=== PATIENT | female | born 1945 | race Caucasian/White ===

== ENCOUNTER → 2016-11-24 | Outpatient (CLI) | payer MEDICARE ==
--- NOTE | 2016-11-24 16:07 | BD ---
EXAMINATION TYPE: MG DEXA axial skeleton. DATE OF EXAM: 11/24/2016 3:46 PM COMPARISON: NONE CLINICAL HISTORY:screening osteoporosis Height: 5'7 Weight: 145 FRAX RISK QUESTIONS: Alcohol (3 or more units per day): no Family History (Parent hip fracture): no Glucocorticoids (More than 3mos): no (Ex: prednisone, prednisolone, methylprednisolone, dexamethasone, and hydrocortisone). History of Fracture in Adulthood: no Secondary Osteoporosis: 1. Type 1 Diabetes: no 2. Hyperthyroidism: no 3. Menopause before 45: no 4. Malnutrition: no 5. 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 System. Bone mineral density as measured about the Lumbar spine is: ----- L1-L4(G/cm2): 1.246 T Score Values are as follows: ----- L2: -0.6 ----- L3: 0.8 ----- L4: 0.3 ----- L1-L4: 0.6 Bone mineral density about the R hip (g/cm2): 0.784 Bone mineral density about the L hip (g/cm2): 0.730 T Score values are as follows: -----R Neck: -1.8 -----L Neck: -2.2 -----R Intertrochanter: -1.9 -----L Intertrochanter: -1.8 IMPRESSION: Osteopenia (T Score between -2.5 and -1 as noted by T score values: luba hips There is slightly increased risk of fracture and the patient may be considered for treatment. Re-Screen 1-2 years. NOTE: T-SCORE=SD OF THE YOUNG ADULT MEAN.
--- NOTE | 2016-11-25 07:24 | MM ---
Reason for exam: screening (asymptomatic). History: Patient is postmenopausal. Took hormonal contraceptives for 1 year. Physical Findings: Nurse did not find any significant physical abnormalities on exam. MG 3D Screening Mammo W/Cad Bilateral CC and MLO view(s) were taken. No prior studies available for comparison. There are scattered fibroglandular densities. Finding: There are vascular calcifications in both breasts. There is no discrete abnormality. These results were verbally communicated with the patient and result sheet given to the patient on 11/24/16. ASSESSMENT: Benign, BI-RAD 2 RECOMMENDATION: Routine screening mammogram of both breasts in 1 year.
== END | disposition home or self-care (01) ==
LOC: RADMAMWWP 14:44
PROVIDERS: ATTEND Family Medicine
DX: Z12.31 Encounter for screening mammogram for malignant neoplasm of breast (principal); Z13.820 Encounter for screening for osteoporosis; M85.80 Other specified disorders of bone density and structure, unspecified site
CPT/HCPCS: 77080; 77063; G0202

== ENCOUNTER → 2016-12-08 | Outpatient (CLI) | payer MEDICARE ==
[2016-12-08 14:21] LABS: ALT 30 U/L (9-52); AST 20 U/L (14-36); Anion Gap 9 mmol/L; Blood Urea Nitrogen 9 mg/dL (7-17); Carbon Dioxide 28 mmol/L (22-30); Chloride 99 mmol/L (98-107); Non-African American GFR(MDRD) >60 (>60 ml/min/1.73 sqM); Potassium 3.9 mmol/L (3.5-5.1); Sodium 136 mmol/L (137-145)
[2016-12-08 15:28] LABS: Vitamin B12 521 pg/mL
== END | disposition home or self-care (01) ==
LOC: LABWHC1 13:26
PROVIDERS: ATTEND Psychiatry & Neurology Neurology
DX: R41.3 Other amnesia (principal); G30.0 Alzheimer's disease with early onset
CPT/HCPCS: 36415; 80051; 82565; 82607; 82746; 84450; 84460; 84520

== ENCOUNTER 2017-02-09 12:58 | Emergency (ER) | payer MEDICARE ==
[2017-02-09 13:19] VITALS: RESP 18
[2017-02-09] MEDS ORDERED: SODIUM CHLORIDE 0.9% 500 ML IV STA (13:34)
[2017-02-09 14:20] LABS: Basophils % (A) 0 %; CH 31.3; CHCM 34.9; Eosinophils # (A) 0.1 k/uL (0-0.7); Eosinophils % (A) 1 %; HCT 38.3 % (34.0-46.0); HDW 2.78; HGB 13.2 gm/dL (11.4-16.0); Luc # (Auto) 0.15; Luc % (Auto) 1; Lymphocytes # (A) 0.7 k/uL (1.0-4.8); Lymphocytes % (A) 6 %; MCH 30.9 pg (25.0-35.0); MCHC 34.4 g/dL (31.0-37.0); MCV 89.9 fL (80.0-100.0); Mean Platelet Volume 6.5; Monocytes # (A) 0.7 k/uL (0-1.0); Monocytes % (A) 6 %; Neutrophils # (A) 9.6 k/uL (1.3-7.7); Neutrophils % (A) 85 %; RBC 4.26 m/uL (3.80-5.40); RDW 13.8 % (11.5-15.5); WBC 11.3 k/uL (3.8-10.6); WBC (Perox) 11.51
--- NOTE | 2017-02-09 14:24 | ED ---
General Adult HPI - General Chief complaint: Recheck/Abnormal Lab/Rx Stated complaint: abn labs Time Seen by Provider: 02/09/17 13:23 Source: patient, RN notes reviewed, old records reviewed Mode of arrival: ambulatory Limitations: no limitations - History of Present Illness Initial comments: This is a 71-year-old female here for evaluation of abnormal outpatient lab tests. Patient does take Coumadin for history of A. fib. Patient states her recent INR is been around 5 and 6. This patient 3 different testings on outpatient basis. No change in medications or recent antibiotic use no change in diet. Mild diarrheal illness last week but that has resolved. Patient states she has no bleeding no feelings of lightheadedness dizziness or weakness. She has not taken any Coumadin since - Related Data Home Medications Medication Instructions Recorded Confirmed Acetaminophen Tab [Tylenol Tab] 1,000 mg PO BID PRN 02/09/17 02/09/17 Atorvastatin [Lipitor] 20 mg PO HS 02/09/17 02/09/17 Cyanocobalamin (Vitamin B-12) 1,000 mcg PO QAM 02/09/17 02/09/17 [Vitamin B-12] Donepezil [Aricept] 5 mg PO QAM 02/09/17 02/09/17 Multivitamins, Thera [Multivitamin 1 tab PO HS 02/09/17 02/09/17 (formulary)] Warfarin [Coumadin] 5 mg PO MOTUTHFRSA 02/09/17 02/09/17 Allergies Allergy/AdvReac Type Severity Reaction Status Date / Time No Known Allergies Allergy Verified 02/09/17 14:41 Review of Systems ROS Statement: Those systems with pertinent positive or pertinent negative responses have been documented in the HPI. ROS Other: All systems not noted in ROS Statement are negative. Past Medical History Past Medical History: Atrial Fibrillation, CVA/TIA, Dementia, Hyperlipidemia History of Any Multi-Drug Resistant Organisms: None Reported Past Surgical History: Cholecystectomy, Hysterectomy Additional Past Surgical History / Comment(s): varicose veins Past Psychological History: No Psychological Hx Reported Smoking Status: Never smoker Past Alcohol Use History: None Reported Past Drug Use History: None Reported General Exam Limitations: no limitations General appearance: alert, in no apparent distress Head exam: Present: atraumatic, normocephalic, normal inspection Eye exam: Present: normal appearance, PERRL, EOMI. Absent: scleral icterus, conjunctival injection, periorbital swelling ENT exam: Present: normal exam, mucous membranes moist Neck exam: Present: normal inspection. Absent: tenderness, meningismus, lymphadenopathy Respiratory exam: Present: normal lung sounds bilaterally. Absent: respiratory distress, wheezes, rales, rhonchi, stridor Cardiovascular Exam: Present: regular rate, normal rhythm, normal heart sounds. Absent: systolic murmur, diastolic murmur, rubs, gallop, clicks GI/Abdominal exam: Present: soft, normal bowel sounds. Absent: distended, tenderness, guarding, rebound, rigid Extremities exam: Present: normal inspection, full ROM, normal capillary refill. Absent: tenderness, pedal edema, joint swelling, calf tenderness Back exam: Present: normal inspection Neurological exam: Present: alert, oriented X3, CN II-XII intact Psychiatric exam: Present: normal affect, normal mood Skin exam: Present: warm, dry, intact, normal color. Absent: rash Course Vital Signs 02/09/17 13:15 Temperature 98.9 F Pulse Rate 93 Respiratory 18 Rate Blood Pressure 148/64 O2 Sat by Pulse 95 Oximetry - Reevaluation(s) Reevaluation #1: 02/09/17 14:24 Discussed the patient at length regarding anticoagulation, questions are answered Reevaluation #2: 02/09/17 14:53 Again patient remains with no obvious bleeding, hemoglobin stable vital signs normal Medical Decision Making - Medical Decision Making 71 female here for evaluation of INR, patient remains elevated 6.2. Patient will continue not to take Coumadin we will provide patient with vitamin K here in the emergency room and patient will have recheck INR in 48 hours - Lab Data Result diagrams: 02/09/17 14:00 02/09/17 14:00 Lab Results 02/09/17 02/09/17 02/09/17 Range/Units 14:00 14:00 14:00 WBC 11.3 H (3.8-10.6) k/uL RBC 4.26 (3.80-5.40) m/uL Hgb 13.2 (11.4-16.0) gm/dL Hct 38.3 (34.0-46.0) % MCV 89.9 (80.0-100.0) fL MCH 30.9 (25.0-35.0) pg MCHC 34.4 (31.0-37.0) g/dL RDW 13.8 (11.5-15.5) % Plt Count 316 (150-450) k/uL Neutrophils % 85 % Lymphocytes % 6 % Monocytes % 6 % Eosinophils % 1 % Basophils % 0 % Neutrophils # 9.6 H (1.3-7.7) k/uL Lymphocytes # 0.7 L (1.0-4.8) k/uL Monocytes # 0.7 (0-1.0) k/uL Eosinophils # 0.1 (0-0.7) k/uL Basophils # 0.0 (0-0.2) k/uL PT 65.2 H (9.0-12.0) sec INR 6.4 H* (<1.1) APTT 47.2 H (22.0-30.0) sec Sodium 134 L (137-145) mmol/L Potassium 3.5 (3.5-5.1) mmol/L Chloride 100 (98-107) mmol/L Carbon Dioxide 28 (22-30) mmol/L Anion Gap 6 mmol/L BUN 8 (7-17) mg/dL Creatinine 0.51 L (0.52-1.04) mg/dL Est GFR (MDRD) Af Amer >60 (>60 ml/min/1.73 sqM) Est GFR (MDRD) Non-Af >60 (>60 ml/min/1.73 sqM) Glucose 92 (74-99) mg/dL Calcium 8.5 (8.4-10.2) mg/dL Phosphorus 3.8 (2.5-4.5) mg/dL Magnesium 1.9 (1.6-2.3) mg/dL Disposition Clinical Impression: Coumadin toxicity Disposition: HOME SELF-CARE Condition: Good Instructions: Warfarin (By mouth) Referrals: Jose Armando Molina MD [Primary Care Provider] - 1-2 days
[2017-02-09 14:35] LABS: Anion Gap 6 mmol/L; Blood Urea Nitrogen 8 mg/dL (7-17); Calcium 8.5 mg/dL (8.4-10.2); Carbon Dioxide 28 mmol/L (22-30); Chloride 100 mmol/L (98-107); Glucose 92 mg/dL (74-99); Magnesium 1.9 mg/dL (1.6-2.3); Non-African American GFR(MDRD) >60 (>60 ml/min/1.73 sqM); Phosphorous 3.8 mg/dL (2.5-4.5); Potassium 3.5 mmol/L (3.5-5.1); Sodium 134 mmol/L (137-145)
[2017-02-09 14:47] LABS: Partial Thromboplastin Time 47.2 sec (22.0-30.0); Prothrombin Time 65.2 sec (9.0-12.0)
[2017-02-09 14:49] LABS: INR 6.4 (<1.1)
[2017-02-09] MEDS ORDERED: PHYTONADIONE ORAL 5 MG/5 ML ORAL.SYRG PO STA (14:51)
[2017-02-09 15:12] VITALS: BP 156/68; PULSE 88; TEMP 98.8
== END 2017-02-09 15:10 | disposition home or self-care (01) ==
LOC: EC 12:58
DX: R79.1 Abnormal coagulation profile (principal); T45.515A Adverse effect of anticoagulants, initial encounter; I48.91 Unspecified atrial fibrillation; F03.90 Unspecified dementia, unspecified severity, without behavioral disturbance, psychotic disturbance, mood disturbance, and anxiety; E78.5 Hyperlipidemia, unspecified; Z79.01 Long term (current) use of anticoagulants; Z79.899 Other long term (current) drug therapy
CPT/HCPCS: 36415; 80048; 83735; 84100; 84484; 85025; 85610; 85730; 99284

== ENCOUNTER 2017-02-13 07:45 | Emergency (ER) | payer MEDICARE ==
[2017-02-13] MEDS ORDERED: KETOROLAC 60 MG/2 ML VIAL IM STA (08:13)
[2017-02-13] MEDS ORDERED: HYDROmorphone 1 MG/ML 1 ML SYRINGE IM STA (08:13)
[2017-02-13] MEDS ORDERED: ONDANSETRON ODT 4 MG TAB PO STA (08:13)
--- NOTE | 2017-02-13 08:17 | ED ---
General Adult HPI - General Chief complaint: Shortness of Breath Stated complaint: Fall Time Seen by Provider: 02/13/17 07:55 Source: patient, RN notes reviewed Mode of arrival: wheelchair Limitations: no limitations - History of Present Illness Initial comments: This is a 71-year-old female who presents emergency department after having fallen a few days ago and hurting her left lateral rib cage. Patient comes in today because the pain is getting worse and her doctor told her he heard some crackles in the base of her lung. Patient denies any cough patient denies any fever or chills. Patient denies any palpitations or chest pain. Patient denies any lightheadedness dizziness or near syncopal episode. Patient states she was on a stool lost her balance and fell up against the toilet paper roll dispenser. Patient denies any other injury. Patient denies hitting her head patient denies any loss of conscious patient denies being dazed. Patient denies any neck pain or injury to her neck. Patient denies any numbness weakness - Related Data Home Medications Medication Instructions Recorded Confirmed Acetaminophen Tab [Tylenol Tab] 1,000 mg PO BID PRN 02/09/17 02/13/17 Atorvastatin [Lipitor] 20 mg PO HS 02/09/17 02/13/17 Cyanocobalamin (Vitamin B-12) 1,000 mcg PO QAM 02/09/17 02/13/17 [Vitamin B-12] Donepezil [Aricept] 5 mg PO QAM 02/09/17 02/13/17 Multivitamins, Thera [Multivitamin 1 tab PO DAILY 02/09/17 02/13/17 (formulary)] Warfarin [Coumadin] 2.5 mg PO HS 02/13/17 02/13/17 Previous Rx's Medication Instructions Recorded Hydrocodone/Acetaminophen [Ashford 1 each PO Q4HR PRN #20 tab 02/13/17 5-325] Ibuprofen [Motrin] 400 mg PO Q6HR PRN #20 tab 02/13/17 Allergies Allergy/AdvReac Type Severity Reaction Status Date / Time No Known Allergies Allergy Verified 02/13/17 08:15 Review of Systems ROS Statement: Those systems with pertinent positive or pertinent negative responses have been documented in the HPI. ROS Other: All systems not noted in ROS Statement are negative. Past Medical History Past Medical History: Atrial Fibrillation, CVA/TIA, Dementia, Hyperlipidemia History of Any Multi-Drug Resistant Organisms: None Reported Past Surgical History: Cholecystectomy, Hysterectomy Additional Past Surgical History / Comment(s): varicose veins Past Psychological History: No Psychological Hx Reported Smoking Status: Never smoker Past Alcohol Use History: None Reported Past Drug Use History: None Reported General Exam - General Exam Comments Initial Comments: GENERAL: Patient is well-developed and well-nourished. Patient is nontoxic and well- hydrated and is in mild distress. ENT: Neck is soft and supple. No significant lymphadenopathy is noted. Oropharynx is clear. Moist mucous membranes. Neck has full range of motion without eliciting any pain. EYES: The sclera were anicteric and conjunctiva were pink and moist. Extraocular movements were intact and pupils were equal round and reactive to light. Eyelids were unremarkable. PULMONARY: Unlabored respirations. Good breath sounds bilaterally. Patient has crackles in the left base.. CARDIOVASCULAR: There is a regular rate and rhythm without any murmurs gallops or rubs. Patient has some contusion over the left lateral rib cage. That area is very tender to palpation. ABDOMEN: Soft and nontender with normal bowel sounds. No palpable organomegaly was noted. There is no palpable pulsatile mass. SKIN: Skin is clear with no lesions or rashes and otherwise unremarkable. NEUROLOGIC: Patient is alert and oriented x3. Cranial nerves II through XII are grossly intact. Motor and sensory are also intact. Normal speech, volume and content. Symmetrical smile. MUSCULOSKELETAL: Normal extremities with adequate strength and full range of motion. No lower extremity swelling or edema. No calf tenderness. LYMPHATICS: No significant lymphadenopathy is noted PSYCHIATRIC: Normal psychiatric evaluation. Normal interpersonal interactions appears functionally intact in deals appropriately with others. No signs of depression. No signs of anxiety. Limitations: no limitations Course Vital Signs 02/13/17 07:52 Temperature 98.1 F Pulse Rate 78 Respiratory 22 Rate Blood Pressure 185/86 O2 Sat by Pulse 96 Oximetry Medical Decision Making - Medical Decision Making Chest x-ray shows 2 rib fractures on the left lateral rib cage. I went back into reevaluate the patient she was feeling considerably better. Disposition Clinical Impression: Rib fractures Disposition: HOME SELF-CARE Instructions: Rib Fracture (ED) Prescriptions: Hydrocodone/Acetaminophen [Ashford 5-325] 1 each PO Q4HR PRN #20 tab PRN Reason: Pain Ibuprofen [Motrin] 400 mg PO Q6HR PRN #20 tab PRN Reason: For pain Referrals: Jose Armando Molina MD [Primary Care Provider] - 1-2 days Time of Disposition: 09:22
--- NOTE | 2017-02-13 08:38 | XR ---
EXAMINATION TYPE: XR chest 2V DATE OF EXAM: 02/13/2017 HISTORY: Difficulty breathing . REFERENCE: NONE. FINDINGS: The lungs are overinflated. There is granulomatous change in the right lung. There is pleur al parenchymal change at the left lung base. There are calcified hilar lymph nodes. Heart size upper limits of normal. I could not exclude a small left effusion. No definite rib lesion is seen. IMPRESSION: 1. COPD. 2. BORDERLINE CARDIOMEGALY. 3. EVIDENCE OF OLD GRANULOMATOUS DISEASE. 4. NO PARENCHYMAL CHANGES, LEFT LUNG BASE.
[2017-02-13 09:51] VITALS: BP 131/65; PULSE 77; RESP 15; TEMP 97.7
== END 2017-02-13 10:17 | disposition home or self-care (01) ==
LOC: EC 07:45
DX: S22.42XG Multiple fractures of ribs, left side, subsequent encounter for fracture with delayed healing (principal); I48.91 Unspecified atrial fibrillation; F03.90 Unspecified dementia, unspecified severity, without behavioral disturbance, psychotic disturbance, mood disturbance, and anxiety; E78.5 Hyperlipidemia, unspecified; Z86.73 Personal history of transient ischemic attack (TIA), and cerebral infarction without residual deficits; Z79.01 Long term (current) use of anticoagulants; Z79.899 Other long term (current) drug therapy; W18.11XD Fall from or off toilet without subsequent striking against object, subsequent encounter
CPT/HCPCS: 96372 ×2; 71020; 99285; J1885; J1170

== ENCOUNTER 2017-04-08 08:32 | Day surgery (SDC) | payer MEDICARE ==
[2017-04-02 09:18] VITALS: BMI 22.8
[~2017-04-08 08:32] MED LIST: LACTATED RINGERS 1,000 ML IV SCH; LIDOCAINE 1% 20 ML VIAL (10MG/ML) FOR IV START INTRADERMA PRN; MOXIFLOXACIN HCL 0.5% DROPS 3 ML BTL OP ONE; TETRACAINE 0.5% OPHTH (PF) DROPS 4 ML BTL OP ONE; TIMOLOL 0.5% OPHTH SOLN (PF) 0.2 ML DROPERETTE OP ONE
[2017-04-08] MEDS: PHENYLEPHRINE 2.5% OPHTH DRP 2ML OP NR ×3 (09:41→09:55)
[2017-04-08] MEDS: CYCLOPENTOLATE 1% OPHTH SOLN 2 ML BTL OP ONE ×3 (09:44→09:59)
[2017-04-08 09:54] VITALS: RESP 16; TEMP 97.3
[2017-04-08] MEDS ORDERED: HYALURONATE SODIUM INTRAOCULAR 1 EACH SYRINGE (12MG/ML) INTRAOCULA ONE (10:27)
[2017-04-08] MEDS ORDERED: BALANCED SALT IRRIG SOLN COMB2 15 ML IRRIG.SOLN INTRAOCULA ONE (10:27)
[2017-04-08] MEDS ORDERED: LIDOCAINE 1% (PF) 10MG/ML VIAL MISCELLANE ONE (10:28)
[2017-04-08] MEDS ORDERED: fentaNYL (PF) 50 MCG/ML 2 ML AMP ONE (10:29)
[2017-04-08] MEDS ORDERED: MIDAZOLAM 2 MG/2 ML VIAL ONE (10:29)
[2017-04-08] MEDS ORDERED: EPINEPHrine (PF) 0.3 ML in BALANCED SALT IRRIG SOLN COMB2 500 ML IRRIGATION ONE (10:40)
--- NOTE | 2017-04-08 10:55 | P.OP ---
Date of Procedure: 04/08/17 Preoperative Diagnosis: NS & PSC Postoperative Diagnosis: same Procedure(s) Performed: PIOL, OD Implants: PCB0 +22.50 Anesthesia: MAC Surgeon: Juan Calderon Pathology: none sent Condition: stable Disposition: same day Indications for Procedure: blurry vision Operative Findings: no complications Description of Procedure:
[2017-04-08 11:19] VITALS: BP 148/77; PULSE 71
--- NOTE | 2017-04-09 10:56 | OP ---
PREOPERATIVE DIAGNOSIS: Nuclear sclerosis. Posterior subcapsular cataract. POSTOPERATIVE DIAGNOSIS: Nuclear sclerosis. Posterior subcapsular cataract. OPERATION: Clear cornea phacoemulsification of cataract and intraocular lens implant of the right eye. ESTIMATED BLOOD LOSS: Zero. SPECIMEN TAKEN: None. NARRATIVE: After obtaining the appropriate consent, the patient was brought to the Operating Room where the patient was placed under cardiac monitoring and prepped and draped in the usual sterile manner. At the 11 oclock position, a 15 degree super sharp blade was used to create a paracentesis followed by instillation of 1% Xylocaine MPF 50:50 mix with BSS into the anterior chamber. This was followed by Amvisc to stabilize the anterior chamber. At the 9 o clock position, a self sealing corneal flap incision was created using 2.8 mm caio keratome. A cystatome was used to initiate a continuous tear capsulorrhexis which was completed with the Utrata forceps. A Binkhorst cannula was used to hydrodissect the lens nucleus followed by hydrodelineation. Phacoemulsification of the lens was performed utilizing phacochop in 16.60 seconds at 8% power. The remaining cortical material was removed using the irrigation aspiration mode followed by additional 1% Xylocaine MPF into the anterior chamber followed by viscoelastic to stabilize the capsular bag. An SHARIF PZB 00 22.5 diopter posterior chamber lens was placed into the capsular bag without difficulty. The remaining viscoelastic material was removed from the anterior chamber with the irrigation/aspiration. Balanced salt solution was used to normalize the intraocular pressure. The incision was checked for watertight integrity. The patient then received two drops of 0.5% Timolol followed by two drops of Vigamox, was lightly patched and shielded in the usual manner. There were no complications from the procedure. The patient tolerated the procedure well and was returned to the recovery room in good condition. MARILU
== END 2017-04-08 11:39 | disposition home or self-care (01) ==
LOC: OR 08:32
PROVIDERS: ATTEND Ophthalmology
DX: H25.11 Age-related nuclear cataract, right eye (principal); H25.041 Posterior subcapsular polar age-related cataract, right eye; H52.03 Hypermetropia, bilateral; H52.223 Regular astigmatism, bilateral; H52.4 Presbyopia; H04.129 Dry eye syndrome of unspecified lacrimal gland; I51.9 Heart disease, unspecified; I48.91 Unspecified atrial fibrillation; F03.90 Unspecified dementia, unspecified severity, without behavioral disturbance, psychotic disturbance, mood disturbance, and anxiety; F32.9 Major depressive disorder, single episode, unspecified; I10 Essential (primary) hypertension; Z86.73 Personal history of transient ischemic attack (TIA), and cerebral infarction without residual deficits; Z79.01 Long term (current) use of anticoagulants; Z79.899 Other long term (current) drug therapy
CPT/HCPCS: 66984; C1780; J2250; J0171; J3010; J2001

== ENCOUNTER → 2017-12-01 | Outpatient (CLI) | payer MEDICARE ==
[2017-12-01 11:03] LABS: Basophils # (A) 0.1 k/uL (0-0.2); Basophils % (A) 1 %; Eosinophils # (A) 0.1 k/uL (0-0.7); Eosinophils % (A) 2 %; HCT 43.4 % (34.0-46.0); HGB 14.4 gm/dL (11.4-16.0); Lymphocytes # (A) 1.2 k/uL (1.0-4.8); Lymphocytes % (A) 18 %; MCH 29.4 pg (25.0-35.0); MCHC 33.2 g/dL (31.0-37.0); MCV 88.5 fL (80.0-100.0); Mean Platelet Volume 6.9; Monocytes # (A) 0.5 k/uL (0-1.0); Monocytes % (A) 8 %; Neutrophils # (A) 4.7 k/uL (1.3-7.7); Neutrophils % (A) 70 %; Platelet Count 249 k/uL (150-450); RBC 4.91 m/uL (3.80-5.40); RDW 13.7 % (11.5-15.5); WBC 6.7 k/uL (3.8-10.6)
[2017-12-01 11:13] LABS: Potassium 4.1 mmol/L (3.5-5.1)
== END | disposition home or self-care (01) ==
LOC: LABWHC1 10:39
PROVIDERS: ATTEND Psychiatry & Neurology Neurology
DX: R41.3 Other amnesia (principal)
CPT/HCPCS: 36415; 80051; 85025

== ENCOUNTER → 2017-12-10 | Outpatient (CLI) | payer MEDICARE ==
--- NOTE | 2017-12-11 08:43 | MM ---
Reason for exam: screening (asymptomatic). Last mammogram was performed 1 year and 1 month ago. History: Patient is postmenopausal. Took hormonal contraceptives for 1 year. Physical Findings: A clinical breast exam by your physician is recommended on an annual basis and results should be correlated with mammographic findings. MG 3D Screening Mammo W/Cad Bilateral CC and MLO view(s) were taken. Prior study comparison: November 24, 2016, bilateral MG 3d screening mammo w/cad. There are scattered fibroglandular densities. Finding #1: There is new spiculated 10 mm architectural distortion located 8 cm from the nipple in the posterior middle position of the right breast on CC 30/ and MLO 39/. Finding #2: There are typically benign vascular calcifications in both breasts. There is a chronic nodularity in the left breast. Asymmetric breast tissue in the left breast subareolar position, stable. ASSESSMENT: Incomplete: need additional imaging evaluation, BI-RAD 0 RECOMMENDATION: Ultrasound of the right breast. [facility] will attempt to contact patient to return for ultrasound.
== END | disposition home or self-care (01) ==
LOC: RADMAMWWP 09:51
PROVIDERS: ATTEND Family Medicine
DX: Z12.31 Encounter for screening mammogram for malignant neoplasm of breast (principal)
CPT/HCPCS: 77063; 77067

== ENCOUNTER → 2017-12-21 | Outpatient (CLI) | payer MEDICARE ==
--- NOTE | 2017-12-21 11:59 | USB ---
Reason for exam: additional evaluation requested from abnormal screening. History: Patient is postmenopausal. Took hormonal contraceptives for 1 year. Physical Findings: Nurse Summary: all soft, movable (nurse ts). US Breast Workup RT Right breast ultrasound includes all four quadrants, the retroareolar region and axilla. Finding demonstrates no cystic or solid lesion seen. These results were verbally communicated with the patient and result sheet given to the patient on 12/21/17. ASSESSMENT: Incomplete: need additional imaging evaluation, BI-RAD 0 RECOMMENDATION: Special view mammogram of the right breast.
--- NOTE | 2017-12-21 12:00 | MM ---
Reason for exam: additional evaluation requested from abnormal screening. Last mammogram was performed less than 1 month ago. History: Patient is postmenopausal. Took hormonal contraceptives for 1 year. MG 3D Work Up W/Cad RT Spot compression CC, spot compression MLO, and ML view(s) were taken of the right breast. Prior study comparison: December 10, 2017, bilateral MG 3d screening mammo w/cad. November 24, 2016, bilateral MG 3d screening mammo w/cad. Spiculated density 1 o'clock position right breast persists with negative ultrasound. These results were verbally communicated with the patient and result sheet given to the patient on 12/21/17. ASSESSMENT: Suspicious, BI-RAD 4 RECOMMENDATION: Stereotactic core biopsy of the right breast. Called Dr. Molina with mammographic findings and has scheduled an appointment for the patient for 12/21/17 at 1:[address] Suarez. PRELIMINARY REPORT CALLED AND FAXED TO DR. SUAREZ ON 12/21/17.
== END | disposition home or self-care (01) ==
LOC: RADUSWWP 10:19
PROVIDERS: ATTEND Family Medicine
DX: R92.8 Other abnormal and inconclusive findings on diagnostic imaging of breast (principal)
CPT/HCPCS: 77065; 76641; G0279

== ENCOUNTER → 2017-12-30 | Day surgery (SDC) | payer MEDICARE ==
[2017-12-30 13:59] VITALS: BP 162/79; PULSE 90; RESP 14; TEMP 98.9; BMI 25.0
[2017-12-30 14:18] LABS: INR 1.3 (<1.2); Prothrombin Time 12.2 sec (9.0-12.0)
== END ==
LOC: RADMAMWWP 13:12
PROVIDERS: ATTEND Student in an Organized Health Care Education/Training Program
DX: R92.8 Other abnormal and inconclusive findings on diagnostic imaging of breast (principal); Z53.8 Procedure and treatment not carried out for other reasons
CPT/HCPCS: 85610; 85730

== ENCOUNTER → 2017-12-31 | Day surgery (SDC) | payer MEDICARE ==
[2017-12-31 13:37] LABS: INR 1.1 (<1.2); Partial Thromboplastin Time 22.6 sec (22.0-30.0); Prothrombin Time 11.1 sec (9.0-12.0)
[2017-12-31 13:42] VITALS: RESP 16; BMI 25.0
[2017-12-31 14:45] VITALS: BP 166/80; PULSE 84; TEMP 98.9
--- NOTE | 2017-12-31 15:35 | MM ---
Stereotactic Mammotome core biopsy breast. HISTORY: Right breast density The density in question within the right breast were targeted by the undersigned. Procedure was performed by the undersigned. Informed consent was obtained and all of the patients questions were answered. The standard sterile technique was utilized and appropriate local anesthesia was obtained with 1% lidocaine and bicarbonate. 8 cc of lidocaine with epinephrine was also utilized. Mammotome probe was advanced and multiple core samples were obtained and sent to pathology for interpretation. Microclip marker was deployed at the site of biopsy. Post procedural mammogram demonstrates appropriate deployment of radiopaque clip marker. The patient tolerated the procedure well and left the department in stable condition. Pathology results are pending. IMPRESSION: Successful stereotactic core biopsy right breast with pathology results pending. Pathology Results: Benign BREAST, RIGHT, CORE BIOPSY: FAT NECROSIS WITH FIBROSIS, INFLAMMATION AND HISTIOCYTES. NEGATIVE FOR MALIGNANCY. Recommendation Follow up mammogram of the right breast in 3 months. (However this clip appears slightly cranial, 2.5cm, to the distortion and may have migrated. Therefore 3 month short term follow up is recommended). MARILU
== END | disposition home or self-care (01) ==
LOC: RADMAMWWP 13:06
PROVIDERS: ATTEND Student in an Organized Health Care Education/Training Program
DX: R92.8 Other abnormal and inconclusive findings on diagnostic imaging of breast (principal); N64.1 Fat necrosis of breast; N60.31 Fibrosclerosis of right breast; N61.0 Mastitis without abscess; Z91.041 Radiographic dye allergy status
CPT/HCPCS: 88305; 85610; 85730; 19081; 36415; A4648; J2001

== ENCOUNTER → 2018-07-07 | Outpatient (CLI) | payer MEDICARE ==
--- NOTE | 2018-07-07 10:37 | MM ---
Reason for exam: follow-up at short interval from prior study. Last mammogram was performed 6 months ago. History: Patient is postmenopausal. Benign MG stereo VAD BX RT of the right breast, December 31, 2017. Took hormonal contraceptives for 1 year. Physical Findings: Nurse did not find any significant physical abnormalities on exam. MG 3D Diag Mammo W/Cad RT CC and MLO view(s) were taken of the right breast. Prior study comparison: December 21, 2017, right breast MG 3d work up w/cad RT. December 10, 2017, bilateral MG 3d screening mammo w/cad. There are scattered fibroglandular densities. Asymmetric breast tissue likely biopsy change posterior right with benign calcification and density. This finding is changed when compared with previous exams. These results were verbally communicated with the patient and result sheet given to the patient on 07/07/18. ASSESSMENT: Probably benign, BI-RAD 3 RECOMMENDATION: Follow-up diagnostic mammogram of both breasts in 6 months.
== END | disposition home or self-care (01) ==
LOC: RADMAMWWP 09:29 → EEVIPCON 09:40
PROVIDERS: ATTEND Student in an Organized Health Care Education/Training Program
DX: R92.8 Other abnormal and inconclusive findings on diagnostic imaging of breast (principal)
CPT/HCPCS: 77065; G0279; 77061

== ENCOUNTER → 2019-04-06 | Outpatient (CLI) | payer MEDICARE ==
--- NOTE | 2019-04-06 14:17 | BD ---
EXAMINATION TYPE: Axial Bone Density DATE OF EXAM: 04/06/2019 COMPARISON: 11/24/2016 CLINICAL HISTORY: Postmenopausal female. Height: 63 IN Weight: 168 LBS RISK FACTORS HISTORY OF: Active: YES Diet low in dairy products/other sources of calcium: YES Postmenopausal woman: AGE 43 Lost more than 2 inches in height since high school: YES 09/15" MEDICATIONS: Additional Medications: VIT D, WARFARIN, CHOLESTEROL MEDS, WATER PILL, BLOOD PRESSURE MEDS EXAM MEASUREMENTS: Bone mineral densitometry was performed using the [employer]. Bone mineral density as measured about the Lumbar spine is: ----- L1-L4(G/cm2): 1.234 T Score Values are as follows: ----- L2: 0.2 ----- L3: 1.5 ----- L4: -0.4 ----- L1-L4: 0.5 Bone mineral density has: Increased 1.4% since study of: 11/24/2016 Bone mineral density about the R hip (g/cm2): 0.747 Bone mineral density about the L hip (g/cm2): 0.686 T Score values are as follows: -----R Neck: -2.1 -----L Neck: -2.5 -----R Total: -1.6 -----L Total: -2.3 Bone mineral density has: Decreased -2.8% since study of: 11/24/2016 IMPRESSION: Osteopenia (T Score between -2.5 and -1) remains present in both hips. There remains slightly increased risk of fracture and the patient may be considered for treatment. Re-Screen 2-5 years. NOTE: T-SCORE=SD OF THE YOUNG ADULT MEAN.
== END | disposition home or self-care (01) ==
LOC: RADBDWWP 12:41
PROVIDERS: ATTEND Family Medicine
DX: M85.88 Other specified disorders of bone density and structure, other site (principal); Z78.0 Asymptomatic menopausal state
CPT/HCPCS: 77080

== ENCOUNTER 2019-09-07 09:40 | Emergency (ER) | payer MEDICARE ==
[2019-09-07 09:50] VITALS: RESP 18; TEMP 98.2
--- NOTE | 2019-09-07 10:42 | XR ---
EXAMINATION TYPE: XR chest 1V portable DATE OF EXAM: 09/07/2019 COMPARISON: February 13, 2017 HISTORY: Shortness of breath TECHNIQUE: Frontal and lateral views of the chest are obtained. FINDINGS: Scattered senescent parenchymal changes noted. Hyperinflation compatible with COPD. No evidence for infiltrate. No evidence for atelectasis. Heart size is stable. Mediastinal structures are stable and grossly unremarkable. Persistence of bilateral hilar prominence. Degenerative changes dorsal spine. IMPRESSION: 1. No evidence for acute pulmonary disease.
[2019-09-07] MEDS ORDERED: KETOROLAC 30 MG/ML 1 ML VIAL IVP STA (10:58)
--- NOTE | 2019-09-07 11:02 | ED ---
General Adult HPI - General Chief complaint: Syncope Stated complaint: Syncope, headache Time Seen by Provider: 09/07/19 09:56 Source: patient Mode of arrival: wheelchair Limitations: no limitations - History of Present Illness Initial comments: Dictation was produced using [employer] dictation software. please excuse any grammatical, word or spelling errors. Chief Complaint: 74-year-old female past medical history of A. fib, dementia and dyslipidemia presents after syncope yesterday and headache since this morning. History of Present Illness: It is a 74-year-old female she was at [employer] doing [employer]ism when she felt warm. She didn't syncopized. EMS was called and patient is evaluated by EMS however patient refused to come to the emergency department. Patient was at home where she lives by herself. Patient states that the middle night she began having a slight headache. Patient is a history of headaches. She states that it's located to the left of the region throbbing in nature. Patient has a history of migraines. Patient has a sciatic pain worsening of her life. Denies thunderclap characteristic. No neuro deficits. No vision changes. Patient has a history of syncope. Most recently was last year she had 2 episodes. Patient had a workup for her syncope with no apparent findings. The ROS documented in this emergency department record has been reviewed and confirmed by me. Those systems with pertinent positive or negative responses have been documented in the HPI. All other systems are other negative and/or noncontributory. PHYSICAL EXAM: General Impression: Alert and oriented x3, not in acute distress HEENT: Normocephalic atraumatic, extra-ocular movements intact, pupils equal and reactive to light bilaterally, mucous membranes moist. Cardiovascular: Heart regular rate and rhythm, S1&S2 audible, no murmurs, rubs or gallops Chest: Lungs clear to auscultation bilaterally, no rhonchi, no wheeze, no rales Abdomen: Bowel sounds present, abdomen soft, non-tender, non-distended, no organomegaly Musculoskeletal: Pulses present and equal in all extremities, no peripheral edema Motor: no focal deficits noted Neurological: CN II-XII grossly intact, no focal motor or sensory deficits noted Skin: Intact with no visualized rashes Psych: Normal affect and mood ED course: 74-year-old female presents with headache and syncope yesterday. As upon arrival are within acceptable limits. Laboratory evaluation obtained. CBC, coag panel, metabolic panel is unremarkable. Computed tomography scan of the head and chest x-ray is unremarkable. Patient observed in emergency department stable medical con dition. Disposition options were discussed with patient and family member. Observation admission was offered however patient declined. patient is stable for discharge for outpatient workup of symptoms. Return parameters discussed. Patient has no high-risk features to suggest life-threatening cardiopulmonary disease to cause syncope. EKG interpretation: Ventricular rate 81, normal sinus rhythm,. right bundle branch block 188, QRS 1:30, QTC 473. No TX prolongation, no QTC prolongation, no ST or T-wave changes noted. No old EKG for comparison Overall, this EKG is unremarkable - Related Data Home Medications Medication Instructions Recorded Confirmed Acetaminophen Tab [Tylenol Tab] 1,000 mg PO BID PRN 02/09/17 12/31/17 Atorvastatin [Lipitor] 20 mg PO HS 02/09/17 12/31/17 Cyanocobalamin (Vitamin B-12) 1,000 mcg PO QAM 02/09/17 12/31/17 [Vitamin B-12] Donepezil [Aricept] 10 mg PO QAM 02/09/17 12/31/17 Warfarin [Coumadin] 4 mg PO HS 02/13/17 12/31/17 Melatonin (Unk Dose) 1 tab PO HS 04/02/17 12/31/17 Dextromethorphan Polistirex 30 mg PO HS 12/23/17 12/31/17 [Delsym] Guaifen/Phenyleph/Acetaminophn 180 ml PO QID PRN 12/23/17 12/31/17 [Mucinex Sinus-Max Severe Liq] Allergies Allergy/AdvReac Type Severity Reaction Status Date / Time Iodinated Contrast Media Allergy Unknown Verified 12/31/17 13:31 [Iodinated Contrast- Oral and IV Dye] Review of Systems ROS Statement: Those systems with pertinent positive or pertinent negative responses have been documented in the HPI. ROS Other: All systems not noted in ROS Statement are negative. Past Medical History Past Medical History: Atrial Fibrillation, CVA/TIA, Dementia, Hyperlipidemia Additional Past Medical History / Comment(s): bladder not completely emptying,rt cataract History of Any Multi-Drug Resistant Organisms: None Reported Past Surgical History: Cholecystectomy, Hysterectomy Additional Past Surgical History / Comment(s): bilateral cataract,varicose veins in bilateral legs Past Anesthesia/Blood Transfusion Reactions: No Reported Reaction Additional Past Anesthesia/Blood Transfusion Reaction / Comment(s): NO transfusion to date Past Psychological History: Depression Smoking Status: Never smoker Past Alcohol Use History: None Reported, Heavy Past Drug Use History: None Reported - Past Family History Mother Family Medical History: No Reported History Father Family Medical History: No Reported History General Exam Limitations: no limitations Course Vital Signs 09/07/19 09/07/19 09/07/19 09:46 10:30 11:00 Temperature 98.2 F Pulse Rate 82 77 76 Respiratory 18 20 18 Rate Blood Pressure 178/89 175/79 179/93 O2 Sat by Pulse 96 97 96 Oximetry Medical Decision Making - Lab Data Result diagrams: 09/07/19 10:40 09/07/19 10:40 Lab Results 09/07/19 09/07/19 09/07/19 Range/Units 10:40 10:40 10:40 WBC 8.9 (3.8-10.6) k/uL RBC 5.06 (3.80-5.40) m/uL Hgb 15.4 (11.4-16.0) gm/dL Hct 43.5 (34.0-46.0) % MCV 85.9 (80.0-100.0) fL MCH 30.4 (25.0-35.0) pg MCHC 35.3 (31.0-37.0) g/dL RDW 13.3 (11.5-15.5) % Plt Count 211 (150-450) k/uL Neutrophils % 84 % Lymphocytes % 9 % Monocytes % 5 % Eosinophils % 1 % Basophils % 0 % Neutrophils # 7.5 (1.3-7.7) k/uL Lymphocytes # 0.8 L (1.0-4.8) k/uL Monocytes # 0.5 (0-1.0) k/uL Eosinophils # 0.0 (0-0.7) k/uL Basophils # 0.0 (0-0.2) k/uL PT 19.2 H (9.0-12.0) sec INR 1.9 H (<1.2) APTT 32.0 H (22.0-30.0) sec Sodium 137 (137-145) mmol/L Potassium 3.9 (3.5-5.1) mmol/L Chloride 103 (98-107) mmol/L Carbon Dioxide 23 (22-30) mmol/L Anion Gap 11 mmol/L BUN 9 (7-17) mg/dL Creatinine 0.61 (0.52-1.04) mg/dL Est GFR (CKD-EPI)AfAm >90 (>60 ml/min/1.73 sqM) Est GFR (CKD-EPI)NonAf 88 (>60 ml/min/1.73 sqM) Glucose 124 H (74-99) mg/dL Calcium 9.4 (8.4-10.2) mg/dL Disposition Clinical Impression: Syncope, Headache Disposition: HOME SELF-CARE Condition: Good Instructions (If sedation given, give patient instructions): Syncope (ED) Is patient prescribed a controlled substance at d/c from ED?: No Referrals: Jose Armando Molina MD [Primary Care Provider] - 1-2 days Time of Disposition: 11:35
[2019-09-07 11:05] LABS: Basophils % (A) 0 %; Eosinophils % (A) 1 %; HCT 43.5 % (34.0-46.0); HGB 15.4 gm/dL (11.4-16.0); Lymphocytes # (A) 0.8 k/uL (1.0-4.8); Lymphocytes % (A) 9 %; MCH 30.4 pg (25.0-35.0); MCHC 35.3 g/dL (31.0-37.0); MCV 85.9 fL (80.0-100.0); Mean Platelet Volume 7.4; Monocytes # (A) 0.5 k/uL (0-1.0); Monocytes % (A) 5 %; Neutrophils # (A) 7.5 k/uL (1.3-7.7); Neutrophils % (A) 84 %; Platelet Count 211 k/uL (150-450); RBC 5.06 m/uL (3.80-5.40); RDW 13.3 % (11.5-15.5); WBC 8.9 k/uL (3.8-10.6)
[2019-09-07 11:06] LABS: African American GFR (CKD) >90 (>60 ml/min/1.73 sqM); Anion Gap 11 mmol/L; Blood Urea Nitrogen 9 mg/dL (7-17); Calcium 9.4 mg/dL (8.4-10.2); Carbon Dioxide 23 mmol/L (22-30); Chloride 103 mmol/L (98-107); Glucose 124 mg/dL (74-99); Non-African American GFR(CKD) 88 (>60 ml/min/1.73 sqM); Potassium 3.9 mmol/L (3.5-5.1); Sodium 137 mmol/L (137-145)
--- NOTE | 2019-09-07 11:06 | CT ---
EXAMINATION TYPE: CT brain jose aguilera DATE OF EXAM: 09/07/2019 COMPARISON: None HISTORY: Syncopal episode last night CT DLP: [address] of the brain was performed. The ventricles, basal cisterns and sulci overlying the cerebral convexities demonstrate moderate enla rgement. There is no evidence for intracranial hemorrhage or sulcal effacement. There is decreased attenuatio n about the periventricular white matter and deep white matter of both cerebral hemispheres, compatib le with chronic small vessel ischemia. No mass effects are seen. If symptoms persist consider MRI. Osseous calvarium is intact. IMPRESSION: 1. Age related atrophic and chronic small vessel ischemic change without acute intracranial process seen at this time. CT Cervical Spine: Unenhanced CT of the cervical spine was performed with bone and soft tissue window settings submitted . Coronal and sagittal reconstruction is obtained. There is normal alignment and prevertebral soft tissues. No evidence for acute cervical fracture . Scattered degenerative disc disease and spondylosis. Biapical scarring. IMPRESSION: 1. No evidence for acute fracture or subluxation of the cervical spine.
[2019-09-07 11:26] LABS: INR 1.9 (<1.2); Prothrombin Time 19.2 sec (9.0-12.0)
[2019-09-07] MEDS ORDERED: ACETAMINOPHEN TAB 500 MG TAB PO STA (12:08)
[2019-09-07 12:13] VITALS: BP 194/88; PULSE 73
== END 2019-09-07 12:25 | disposition home or self-care (01) ==
LOC: EC 09:40
DX: R55 Syncope and collapse (principal); R51 Headache; I45.10 Unspecified right bundle-branch block; M54.30 Sciatica, unspecified side; I48.91 Unspecified atrial fibrillation; F03.90 Unspecified dementia, unspecified severity, without behavioral disturbance, psychotic disturbance, mood disturbance, and anxiety; E78.5 Hyperlipidemia, unspecified; Z91.041 Radiographic dye allergy status; Z79.01 Long term (current) use of anticoagulants; Z79.899 Other long term (current) drug therapy; Z86.73 Personal history of transient ischemic attack (TIA), and cerebral infarction without residual deficits; Z86.69 Personal history of other diseases of the nervous system and sense organs; Z53.20 Procedure and treatment not carried out because of patient's decision for unspecified reasons
CPT/HCPCS: 36415; 93005; 80048; 85025; 85610; 85730; 71045; 72125; 70450; 99285; 96374; J1885

== ENCOUNTER → 2021-04-10 | Outpatient (CLI) | payer MEDICARE ==
--- NOTE | 2021-04-11 09:56 | BD ---
EXAMINATION TYPE: Axial Bone Density DATE OF EXAM: 04/10/2021 COMPARISON: 04/06/2019 CLINICAL HISTORY: 75-year-old female osteopenia, M85.80 Height: 62.5 IN Weight: 168 LBS FRAX RISK QUESTIONS: Secondary Osteoporosis: 3. Menopause before 45: TOTAL HYST AGE 29 RISK FACTORS HISTORY OF: Active: LIMITED Postmenopausal woman: TOTAL HYST AGE 29 Lost more than 2 inches in height since high school: YES 4 " MEDICATIONS: Osteoporosis Medications: YES Which medication: ALENDRONATE SODIUM How Lon YEARS Additional Medications: CALCIUM, VIT D, ALENDRONATE SODIUM, DONEPEZIL HCL, B12, VIT C, ZINC, ATORVAST ATIN, XARELTO, MELATONIN, EXAM MEASUREMENTS: Bone mineral densitometry was performed using the [employer]. Bone mineral density as measured about the Lumbar spine is: ----- L1-L4(G/cm2): 1.347 T Score Values are as follows: ----- L2: 1.6 ----- L3: 1.4 ----- L4: 0.6 ----- L1-L4: 1.4 Bone mineral density has: Increased 7.7% since study of: 04/06/2019 Bone mineral density about the R hip (g/cm2): 0.796 Bone mineral density about the L hip (g/cm2): 0.694 T Score values are as follows: -----R Neck: -1.7 -----L Neck: -2.5 -----R Total: -1.5 -----L Total: -2.2 Bone mineral density has: Increased 1.7% since study of: 04/06/2019 IMPRESSION: Osteoporosis (T Score less than -2.5) as indicated by T score values at the left hip. There is increased fracture risk and therapy is usually indicated based on age. Re-Screen 1-2 years. NOTE: T-SCORE=SD OF THE YOUNG ADULT MEAN.
== END | disposition home or self-care (01) ==
LOC: RADBDWWP 16:03
PROVIDERS: ATTEND Family Medicine
DX: M81.8 Other osteoporosis without current pathological fracture (principal); Z78.0 Asymptomatic menopausal state
CPT/HCPCS: 77080

== ENCOUNTER 2021-07-17 09:12 | Day surgery (SDC) | payer MEDICARE ==
[2021-07-15 12:11] VITALS: BMI 27.3
[~2021-07-17 09:12] MED LIST changes: +ALPRAZolam 0.25 MG TAB PO PRN; +ALPRAZolam 0.5 MG TAB PO PRN; +ASPIRIN 325 MG TAB PO STA; +ATORVASTATIN 80 MG TAB PO STA; +HEPARIN SODIUM,PORCINE 10,000 UNIT in SODIUM CHLORIDE 0.9% 1,000 ML IRRIGATION PRN; +HEPARIN SODIUM,PORCINE 2,500 UNIT in SODIUM CHLORIDE 0.9% 250 ML IRRIGATION PRN; -LACTATED RINGERS 1,000 ML IV SCH; -LIDOCAINE 1% 20 ML VIAL (10MG/ML) FOR IV START INTRADERMA PRN; -MOXIFLOXACIN HCL 0.5% DROPS 3 ML BTL OP ONE; +NITROGLYCERIN SL TABS 0.4 MG TAB SUBLINGUAL PRN; +SODIUM CHLORIDE 0.9% 1,000 ML in EMPTY BAG 1 BAG IV SCH; -TETRACAINE 0.5% OPHTH (PF) DROPS 4 ML BTL OP ONE; -TIMOLOL 0.5% OPHTH SOLN (PF) 0.2 ML DROPERETTE OP ONE
[2021-07-17] MEDS ORDERED: diphenhydrAMINE 25 MG CAP PO STA (09:43)
[2021-07-17 09:48] VITALS: TEMP 98.1
[2021-07-17] MEDS ORDERED: SODIUM CHLORIDE 0.9% 1,000 ML IV ONE (10:05)
[2021-07-17] MEDS ORDERED: HEPARIN SODIUM 1,000 UN/ML (10ML VL) ONE (10:08)
[2021-07-17] MEDS ORDERED: VERAPAMIL 2.5 MG/ML 2 ML AMP ONE (10:08)
[2021-07-17] MEDS ORDERED: LIDOCAINE 1% INJ 10MG/ML (20 ML MDV) ONE (10:09)
[2021-07-17] MEDS ORDERED: fentaNYL (PF) 50 MCG/ML 2 ML AMP ONE (10:09)
[2021-07-17] MEDS ORDERED: fentaNYL (PF) 50 MCG/ML 2 ML AMP IV ONE (10:48)
[2021-07-17] MEDS ORDERED: MIDAZOLAM 2 MG/2 ML VIAL IV ONE (10:48)
[2021-07-17] MEDS: LIDOCAINE 1% INJ 10MG/ML (20 ML MDV) SQ ONE ×2 (10:53→10:59)
[2021-07-17] MEDS ORDERED: VERAPAMIL SYRINGE (5 MG/10 ML) INTRAARTER ONE (11:00)
[2021-07-17] MEDS ORDERED: HEPARIN SODIUM 1,000 UN/ML (10ML VL) IV ONE (11:08)
[2021-07-17] MEDS ORDERED: IOPAMIDOL-370 125ML BTL INJ ONE (11:17)
[2021-07-17 11:18] LABS: O2 Sat Blood Gas 77.4 %
[2021-07-17 11:19] LABS: O2 Sat Blood Gas 76.2 %
[2021-07-17 11:22] LABS: O2 Sat Blood Gas 94.7 %
[2021-07-17] MEDS ORDERED: RX INFO: IV CONTRAST WAS GIVEN 1 EACH MISC MISCELLANE PRN (14:10)
[2021-07-17 15:31] VITALS: RESP 16
[2021-07-17 16:41] VITALS: BP 148/72; PULSE 74
--- NOTE | 2021-07-17 18:49 | P.CARDCATH ---
Description of Procedure: PROCEDURES PERFORMED: Left and right heart catheterization, bilateral coronary angiography, aortic root angiography INDICATION: Severe aortic regurgitation HISTORY: Patient is a pleasant 76-year-old female with a history of right bundle branch block, mild dementia, hyperlipidemia, atrial fibrillation and recent echo showing severe aortic regurgitation. Patient has been having increasing dyspnea on exertion and most recent echo showing severe aortic regurgitation and therefore right and left heart catheterization were recommended. CONSENT:I have discussed the risks, benefits and alternative therapies for the above-mentioned procedure and for both sedation/analgesia as well as necessary blood product administration, if indicated, as they pertain to this patient. The patient has indicated understanding and acceptance of the risks and procedures discussed. PROCEDURE: After the risks, benefits and alternatives of the above mentioned procedure explained in detail with the patient, informed consent was obtained. Patient was taken to the catheterization lab and prepped and draped in usual fashion. 1% lidocaine was used to anesthetize the right radial artery. A 6- Portuguese sheath was placed in the right radial artery using modified Seldinger technique. Using ultrasound guidance a 6-Portuguese sheath was placed in the right brachial vein using modified Seldinger technique. A 6-Portuguese [place] catheter was advanced into the right atrium, right ventricle, pulmonary artery and pulmonary capillary wedge pressure with oxygen saturations obtained for cardiac output. Left coronary angiography was performed with a 5-Portuguese JL 3.5 catheter and right coronary angiography was performed with a 5-Portuguese JR5 catheter in geovanny ious views. A 5-Portuguese FR5 catheter was inserted into the left ventricle and pressure measurements were obtained. A 6-Portuguese pigtail catheter was advanced into the aortic root and aortic root angiography was performed with power injection. The right radial sheath was removed and a TR band was placed with hemostasis achieved. The patient tolerated the procedure well. Patient was transported back to the post catheterization holding area in stable condition. Conscious Sedation: Patient was monitored under the direct supervision of vision of myself for conscious sedation using Versed and fentanyl for a total duration of 28 minutes HEMODYNAMICS: Aorta: 157/73 LV: 148/29, LVEDP 10 RA: 4 RV: 27/4 PA: 25/7, mean 17 PCWP: 7 RA O2 sat: 76% PA O2 sat: 77% Right radial O2 sat: 95% GEOVANNA CO: 7.23 L/m GEOVANNA CI: 3.84 L/m/m SELECTIVE CORONARY ARTERIOGRAPHY: LEFT MAIN: The left main is a large caliber vessel which bifurcates into the LAD and circumflex. There is no significant stenosis. LEFT ANTERIOR DESCENDING CORONARY ARTERY: LAD is a large caliber vessel which wraps around to the apex. There is a proximal 20-30% LAD stenosis. LEFT CIRCUMFLEX CORONARY ARTERY: Left circumflex is a moderate caliber vessel without significant stenosis. RIGHT CORONARY ARTERY: The right coronary artery is a large caliber vessel which gives off a PDA and PLV branch and is the dominant vessel. There are mild luminal irregularities. AORTOGRAM: There is no significant aortic root dilation. There is 2-3+ aortic regurgitation. FINAL IMPRESSION: 1. Mild CAD as described above with 20-30% LAD stenosis. 2. Normal left and right sided filling pressures 3. 2-3+ aortic regurgitation PLAN: 1. Aggressive risk factor modification per most recent ACC/AHA guidelines. 2. Aortic regurgitation does not appear severe by aortogram with relatively normal left and right sided pressures. Follow-up in the office in 1-2 weeks.
== END 2021-07-17 16:22 | disposition home or self-care (01) ==
LOC: CATHCVL 09:12
PROVIDERS: ATTEND Internal Medicine
DX: I45.10 Unspecified right bundle-branch block (principal); E78.5 Hyperlipidemia, unspecified; Z20.822 Contact with and (suspected) exposure to COVID-19; Z79.01 Long term (current) use of anticoagulants; Z79.899 Other long term (current) drug therapy; Z88.1 Allergy status to other antibiotic agents
CPT/HCPCS: 93460; 93567; 76937; 85018; 82810; 87635; C1894; C1751; J2250; J2001; J3010; J1644; Q9967

== ENCOUNTER 2022-09-01 18:21 | Inpatient (IN) | payer MEDICARE ==
[2022-09-01] MEDS ORDERED: SODIUM CHLORIDE 0.9% 500 ML 500 ML IV STA ×2 (18:40→20:57)
[2022-09-01] MEDS ORDERED: SODIUM CHLORIDE 0.9% 1,000 ML IV STA (18:40)
[2022-09-01 19:10] LABS: Basophils % (A) 1 %; Eosinophils % (A) 0 %; Lymphocytes # (A) 0.1 k/uL (1.0-4.8); Lymphocytes % (A) 1 %; MCH 29.3 pg (25.0-35.0); MCHC 33.8 g/dL (31.0-37.0); MCV 86.8 fL (80.0-100.0); Monocytes # (A) 0.3 k/uL (0-1.0); Monocytes % (A) 5 %; Neutrophils # (A) 6.3 k/uL (1.3-7.7); Neutrophils % (A) 91 %; RDW 14.2 % (11.5-15.5); WBC 6.9 k/uL (3.8-10.6)
[2022-09-01 19:12] LABS: RBC 7.45 m/uL (3.80-5.40)
--- NOTE | 2022-09-01 19:13 | XR ---
EXAMINATION TYPE: XR chest 1V portable DATE OF EXAM: 09/01/2022 COMPARISON: 09/07/2019 HISTORY: Fall. Pain TECHNIQUE: FINDINGS: There are calcified granulomata at the pulmonary raquel. There is bulky pulmonary raquel consis tent with some adenopathy. Thoracic aorta is atheromatous. No pleural effusion. No heart failure seen . IMPRESSION: There is evidence for some bulky bronchial adenopathy and calcification consistent with o ld granulomatous disease. No heart failure. No significant change compared to old exam.
[2022-09-01 19:15] LABS: HCT 64.6 % (34.0-46.0); HGB 21.8 gm/dL (11.4-16.0); Platelet Count 88 k/uL (150-450)
--- NOTE | 2022-09-01 19:15 | XR ---
EXAMINATION TYPE: XR pelvis AP view DATE OF EXAM: 09/01/2022 COMPARISON: NONE HISTORY: Fall. Pain TECHNIQUE: Single view FINDINGS: The pelvic ring is intact. Proximal femurs are intact. Acetabula appear normal. Sacroiliac joints are intact. IMPRESSION: No acute abnormality of the pelvis. No fracture seen.
[2022-09-01] MEDS ORDERED: SODIUM CHLORIDE 0.9% 500 ML IV STA (19:22)
[2022-09-01 19:26] LABS: Albumin 3.5 g/dL (3.5-5.0); Calcium 8.3 mg/dL (8.4-10.2); Total Bilirubin 1.6 mg/dL (0.2-1.3)
[2022-09-01 19:34] LABS: Potassium 4.5 mmol/L (3.5-5.1); Total Protein 6.6 g/dL (6.3-8.2)
[2022-09-01 20:44] LABS: INR 1.1 (<1.2); Prothrombin Time 11.2 sec (9.0-12.0)
--- NOTE | 2022-09-01 20:58 | CT ---
EXAMINATION TYPE: CT brain cspine wo con CT DLP: 1396.8 mGycm, Automated exposure control for dose reduction was used. DATE OF EXAM: 09/01/2022 6:55 PM COMPARISON: 09/07/2019 CLINICAL INDICATION:Female, 77 years old with history of fall; fall, AMS TECHNIQUE: Brain: Multiple axial CT images of the brain were obtained without IV contrast. Cspine: Axial CT images from the skull base to the inferior aspect of T2 we obtained without intraven ous contrast. Coronal and sagittal reformatted images were also reviewed. FINDINGS: Brain: Extra-axial spaces: No abnormal extra-axial fluid collections. Ventricular system: Dilatation in proportion to cerebral atrophy. Cerebral parenchyma: No acute intraparenchymal hemorrhage or mass effect. The remainder of the coe- white junctions are well differentiated. Cerebellum: Unremarkable. Mass effect: No evidence of midline shift. Intracranial vasculature: Atherosclerotic calcifications of the intracranial vessels. Soft tissues: Normal. Calvarium/osseous structures: No depressed skull fracture. Paranasal sinuses and mastoid air cells: Scattered mucosal thickening. Visualized orbits: Bilateral aphakia. Cervical spine: Fracture: None. Osseous structures: Unremarkable Vertebral alignment: Within normal limits. Spinal canal/Neural Foramina: No evidence of significant spinal canal narrowing. No evidence for sign ificant neural foraminal stenosis. Neck soft tissues: Prevertebral soft tissues are within normal limits. Other: The airway is patent. streaky atelectasis/scarring in the lung apices. Left upper lobe calcifi ed granuloma. Pulmonary vascular congestion. Atherosclerosis of the carotid bifurcations. IMPRESSION: 1. No acute intracranial process. 2. Nonspecific white matter changes, likely secondary to chronic small vessel ischemic disease. 3. No evidence of cervical spine fracture. 4. Mild multilevel degenerative disc disease. 5. Pulmonary vascular congestion correlate for congestive heart failure.
--- NOTE | 2022-09-01 21:01 | ED ---
General Adult HPI - General Chief complaint: Fall Stated complaint: Fall Time Seen by Provider: 09/01/22 18:39 Source: EMS Mode of arrival: EMS Limitations: no limitations - History of Present Illness Initial comments: This 77-year-old female presents by EMS after she apparently had a fall. She was found down on the ground by family. She apparently had last been seen 3 days ago. The patient has a decrease in mental status and is unable to communicate well to let us know when she fell. She does have a history of dementia and lives in a independent living facility. The mechanism of the fall is not determined. It is unsure if she hit her head. She is on blood thinners. History is very limited as family has not seen her in 3 days. They state that she was at her normal demented baseline status before and seems to have decreased mental status currently. There is no known fevers or chills. She has been prone to urinary tract infections. No other complaints or modifying factors. Daughter who is power of deputy prosecuting attorney states that she just recently got off Macrobid for a urinary tract infection. They also relate that she has had 4-6 mini strokes in the past. They relate that she is not good at taking her medications and apparently had not taken her medications for the past several days. - Related Data Home Medications Medication Instructions Recorded Confirmed Atorvastatin [Lipitor] 20 mg PO HS 02/09/17 09/01/22 Cyanocobalamin (Vitamin B-12) 1,000 mcg PO DAILY 02/09/17 09/01/22 [Vitamin B-12] Alendronate Sodium [Fosamax] 35 mg PO WHITE@0900 07/15/21 09/01/22 Oxybutynin Chloride [Ditropan XL] 10 mg PO Q2D@2100 07/15/21 09/01/22 Rivaroxaban [Xarelto] 20 mg PO HS 07/15/21 09/01/22 Hai/D3/Mag11/Zinc/Director Of Sustainable Design/Adonis/Bor 1 tab PO DAILY 09/01/22 09/01/22 [Caltrate 600+D Plus Tablet] Donepezil [Aricept] 10 mg PO DAILY 09/01/22 09/01/22 Lactose-Reduced Food [Boost] 237 ml PO DAILY 09/01/22 09/01/22 Allergies Allergy/AdvReac Type Severity Reaction Status Date / Time cat dander Allergy Unknown Verified 09/01/22 21:54 dog dander Allergy Unknown Verified 09/01/22 21:54 Iodinated Contrast Media Allergy Unknown Verified 09/01/22 21:54 [Iodinated Contrast- Oral and IV Dye] mold Allergy Unknown Verified 09/01/22 21:54 Review of Systems ROS Statement: Those systems with pertinent positive or pertinent negative responses have been documented in the HPI. ROS Other: All systems not noted in ROS Statement are negative. Past Medical History Past Medical History: Atrial Fibrillation, CVA/TIA, Dementia, Hyperlipidemia, M lupillo Impairment Additional Past Medical History / Comment(s): bladder not completely emptying- URGENCY AND INCONTINENCE, History of Any Multi-Drug Resistant Organisms: None Reported Past Surgical History: Cholecystectomy, Hysterectomy Additional Past Surgical History / Comment(s): bilateral cataract SX, varicose veins in bilateral legs Past Anesthesia/Blood Transfusion Reactions: No Reported Reaction Additional Past Anesthesia/Blood Transfusion Reaction / Comment(s): NO transfusion to date Past Psychological History: Depression Smoking Status: Former smoker Past Alcohol Use History: Unable to Obtain Past Drug Use History: Unable to Obtain - Past Family History Mother Family Medical History: No Reported History Father Family Medical History: No Reported History General Exam - General Exam Comments Initial Comments: GENERAL: The patient is well nourished but dehydrated. VITAL SIGNS: Heart rate, blood pressure, respiratory rate reviewed as recorded in nurse's notes. EYES: Pupils are round and reactive. Extraocular movements are intact. No conjunctival / lid redness or swelling. ENT: No external evidence of injury, swelling, or ecchymosis. Airway is patent. Throat is clear. NECK: Nontender. No swelling or evidence of injury. No subcutaneous emphysema. Trachea is midline. No thyroid mass. HEART: Regular rate and rhythm. Good peripheral pulses. LUNGS/CHEST: Breath sounds clear and equal bilaterally. No rales, rhonchi, or wheezes. No ecchymosis, subcutaneous emphysema, or tenderness. ABDOMEN: Abdomen soft without tenderness. No palpable masses or organomegaly. No peritoneal signs. No abdominal wall swelling or ecchymosis. EXTREMITIES: No extremity tenderness. Normal muscle tone and function. No thoracolumbar tenderness. NEUROLOGIC: Sensation is grossly intact. Patient is alert but not oriented. She will follow occasional command. SKIN: No abrasions or ecchymosis is noted. No induration or masses noted. PSYCHIATRIC: Alert but not oriented. She will follow occasional command. Limitations: no limitations Course Vital Signs 09/01/22 09/01/22 09/01/22 18:23 19:53 22:54 Temperature 97.8 F Pulse Rate 104 H 104 H 87 Respiratory 18 12 16 Rate Blood Pressure 169/81 194/96 190/87 O2 Sat by Pulse 93 L 97 94 L Oximetry Medical Decision Making - Medical Decision Making The patient was seen and examined immediately upon arrival. Report is received from EMS. She is placed on a teletypesetter monitor and no ectopy is identified. EKG is done and shows a normal sinus rhythm at a rate of 92. There is evidence of a right bundle-branch block with associated ST-T wave changes. No ST elevation is identified. The CO intervals 162, QS duration is 131, and the QTC intervals 420. A portable chest and pelvis x-ray are done and are negative. Dr. Coronado from trauma is notified as patient did apparently fall on blood thinners with undetermined head injury. There is no signs of actual head injury. She does present with a c-collar in place. The laboratory comes back showing a concentrated hemoglobin and hematocrit. It is felt as though she is very dehydrated and multiple 500 mL fluid boluses are given. She seems to be tolerating this well. A delay in patient's care is noted as radiologist does not read the computed tomography scan of the head and neck. The case was discussed with the access tech and apparently the power went out at the radiologist house and they were unable to read the study and it was locked. I'm still awaiting their final read in this regard. Patient is unable to give urine so I did asked the nurse to obtain a cath urine sample. The sodium and chloride are both elevated. The urine and creatinine are also elevated. It is felt as though she is fairly dehydrated. The computed tomography scan of the brain does show some small vessel ischemic changes but no acute process. Computed tomography scan of the cervical spine shows evidence of degenerative changes but no acute process. The cervical collar is cleared. Urine eventually came back positive for infection. - Lab Data Result diagrams: 09/01/22 18:44 09/01/22 18:44 Lab Results 09/01/22 09/01/22 09/01/22 Range/Units 18:44 18:44 20:20 WBC 6.9 (3.8-10.6) k/uL RBC 7.45 H (3.80-5.40) m/uL Hgb 21.8 H* (11.4-16.0) gm/dL Hct 64.6 H* (34.0-46.0) % MCV 86.8 (80.0-100.0) fL MCH 29.3 (25.0-35.0) pg MCHC 33.8 (31.0-37.0) g/dL RDW 14.2 (11.5-15.5) % Plt Count 88 L (150-450) k/uL MPV 10.0 Neutrophils % 91 % Lymphocytes % 1 % Monocytes % 5 % Eosinophils % 0 % Basophils % 1 % Neutrophils # 6.3 (1.3-7.7) k/uL Lymphocytes # 0.1 L (1.0-4.8) k/uL Monocytes # 0.3 (0-1.0) k/uL Eosinophils # 0.0 (0-0.7) k/uL Basophils # 0.0 (0-0.2) k/uL PT 11.2 (9.0-12.0) sec INR 1.1 (<1.2) APTT 22.0 (22.0-30.0) sec Sodium 152 H (137-145) mmol/L Potassium 4.5 (3.5-5.1) mmol/L Chloride 117 H (98-107) mmol/L Carbon Dioxide 23 (22-30) mmol/L Anion Gap 12 mmol/L BUN 103 H* (7-17) mg/dL Creatinine 1.85 H (0.52-1.04) mg/dL Est GFR (CKD-EPI)AfAm 29 (>60 ml/min/1.73 sqM) Est GFR (CKD-EPI)NonAf 26 (>60 ml/min/1.73 sqM) Glucose 135 H (74-99) mg/dL Calcium 8.3 L (8.4-10.2) mg/dL Total Bilirubin 1.6 H (0.2-1.3) mg/dL AST 58 H (14-36) U/L ALT 38 H (4-34) U/L Alkaline Phosphatase 74 (38-126) U/L Creatine Kinase (30-135) U/L Troponin I (0.000-0.034) ng/mL NT-Pro-B Natriuret Pep pg/mL Total Protein 6.6 (6.3-8.2) g/dL Albumin 3.5 (3.5-5.0) g/dL Urine Color Urine Appearance (Clear) Urine pH (5.0-8.0) Ur Specific Laurel (1.001-1.035) Urine Protein (Negative) Urine Glucose (UA) (Negative) Urine Ketones (Negative) Urine Blood (Negative) Urine Nitrite (Negative) Urine Bilirubin (Negative) Urine Urobilinogen (<2.0) mg/dL Ur Leukocyte Esterase (Negative) Urine RBC (0-5) /hpf Urine WBC (0-5) /hpf Ur Squamous Epith Cells (0-4) /hpf Urine Bacteria (None) /hpf 09/01/22 09/01/22 09/01/22 Range/Units 21:27 21:27 21:27 WBC (3.8-10.6) k/uL RBC (3.80-5.40) m/uL Hgb (11.4-16.0) gm/dL Hct (34.0-46.0) % MCV (80.0-100.0) fL MCH (25.0-35.0) pg MCHC (31.0-37.0) g/dL RDW (11.5-15.5) % Plt Count (150-450) k/uL MPV Neutrophils % % Lymphocytes % % Monocytes % % Eosinophils % % Basophils % % Neutrophils # (1.3-7.7) k/uL Lymphocytes # (1.0-4.8) k/uL Monocytes # (0-1.0) k/uL Eosinophils # (0-0.7) k/uL Basophils # (0-0.2) k/uL PT (9.0-12.0) sec INR (<1.2) APTT (22.0-30.0) sec Sodium (137-145) mmol/L Potassium (3.5-5.1) mmol/L Chloride (98-107) mmol/L Carbon Dioxide (22-30) mmol/L Anion Gap mmol/L BUN (7-17) mg/dL Creatinine (0.52-1.04) mg/dL Est GFR (CKD-EPI)AfAm (>60 ml/min/1.73 sqM) Est GFR (CKD-EPI)NonAf (>60 ml/min/1.73 sqM) Glucose (74-99) mg/dL Calcium (8.4-10.2) mg/dL Total Bilirubin (0.2-1.3) mg/dL AST (14-36) U/L ALT (4-34) U/L Alkaline Phosphatase (38-126) U/L Creatine Kinase 447 H (30-135) U/L Troponin I 0.013 (0.000-0.034) ng/mL NT-Pro-B Natriuret Pep pg/mL Total Protein (6.3-8.2) g/dL Albumin (3.5-5.0) g/dL Urine Color Yellow Urine Appearance Cloudy H (Clear) Urine pH 5.5 (5.0-8.0) Ur Specific Laurel 1.021 (1.001-1.035) Urine Protein 1+ H (Negative) Urine Glucose (UA) Negative (Negative) Urine Ketones Trace H (Negative) Urine Blood Moderate H (Negative) Urine Nitrite Negative (Negative) Urine Bilirubin Negative (Negative) Urine Urobilinogen <2.0 (<2.0) mg/dL Ur Leukocyte Esterase Large H (Negative) Urine RBC 7 H (0-5) /hpf Urine WBC 58 H (0-5) /hpf Ur Squamous Epith Cells 1 (0-4) /hpf Urine Bacteria Occasional H (None) /hpf 09/01/22 Range/Units 21:27 WBC (3.8-10.6) k/uL RBC (3.80-5.40) m/uL Hgb (11.4-16.0) gm/dL Hct (34.0-46.0) % MCV (80.0-100.0) fL MCH (25.0-35.0) pg MCHC (31.0-37.0) g/dL RDW (11.5-15.5) % Plt Count (150-450) k/uL MPV Neutrophils % % Lymphocytes % % Monocytes % % Eosinophils % % Basophils % % Neutrophils # (1.3-7.7) k/uL Lymphocytes # (1.0-4.8) k/uL Monocytes # (0-1.0) k/uL Eosinophils # (0-0.7) k/uL Basophils # (0-0.2) k/uL PT (9.0-12.0) sec INR (<1.2) APTT (22.0-30.0) sec Sodium (137-145) mmol/L Potassium (3.5-5.1) mmol/L Chloride (98-107) mmol/L Carbon Dioxide (22-30) mmol/L Anion Gap mmol/L BUN (7-17) mg/dL Creatinine (0.52-1.04) mg/dL Est GFR (CKD-EPI)AfAm (>60 ml/min/1.73 sqM) Est GFR (CKD-EPI)NonAf (>60 ml/min/1.73 sqM) Glucose (74-99) mg/dL Calcium (8.4-10.2) mg/dL Total Bilirubin (0.2-1.3) mg/dL AST (14-36) U/L ALT (4-34) U/L Alkaline Phosphatase (38-126) U/L Creatine Kinase (30-135) U/L Troponin I (0.000-0.034) ng/mL NT-Pro-B Natriuret Pep 332 pg/mL Total Protein (6.3-8.2) g/dL Albumin (3.5-5.0) g/dL Urine Color Urine Appearance (Clear) Urine pH (5.0-8.0) Ur Specific La[place] (1.001-1.035) Urine Protein (Negative) Urine Glucose (UA) (Negative) Urine Ketones (Negative) Urine Blood (Negative) Urine Nitrite (Negative) Urine Bilirubin (Negative) Urine Urobilinogen (<2.0) mg/dL Ur Leukocyte Esterase (Negative) Urine RBC (0-5) /hpf Urine WBC (0-5) /hpf Ur Squamous Epith Cells (0-4) /hpf Urine Bacteria (None) /hpf Disposition Clinical Impression: Dehydration, Mental status alteration, Dementia, Hypernatremia, Hyperchloremia, Fall, Acute kidney injury, Neck arthritis, UTI (urinary tract infection) Disposition: ADMITTED IP TO THIS [facility] Condition: Fair Is patient prescribed a controlled substance at d/c from ED?: No Time of Disposition: 21:43 Decision Date: 09/01/22 Decision Time: 21:44
[2022-09-01] MEDS ORDERED: ONDANSETRON 4 MG/2 ML VIAL IVP PRN (21:47)
[2022-09-01] MEDS ORDERED: NALOXONE 0.4 MG/ML 1 ML VIAL IV PRN (21:47)
[2022-09-01] MEDS ORDERED: ACETAMINOPHEN TAB 325 MG TAB PO PRN (21:47)
[2022-09-01 22:36] LABS: Appearance,Urine Cloudy (Clear); Bacteria,Urine Occasional /hpf; Bilirubin,Urine Negative (Negative); Blood,Urine Moderate (Negative); Color,Urine Yellow; Glucose,Urine (UA) Negative (Negative); Ketones,Urine Trace (Negative); Leukocyte Esterase,Urine Large (Negative); Nitrite,Urine Negative (Negative); PH, Urine 5.5 (5.0-8.0); Protein,Urine 1+ (Negative); RBC,Urine 7 /hpf (0-5); Specific Gravity,Urine 1.021 (1.001-1.035); Squamous Epithelial Cell,Urine 1 /hpf (0-4); Urobilinogen,Urine <2.0 mg/dL (<2.0); WBC,Urine 58 /hpf (0-5)
[2022-09-02 06:15] LABS: Basophils # (A) 0.1 k/uL (0-0.2); Basophils % (A) 0 %; Eosinophils % (A) 0 %; HCT 45.4 % (34.0-46.0); Lymphocytes # (A) 0.2 k/uL (1.0-4.8); Lymphocytes % (A) 1 %; MCHC 33.5 g/dL (31.0-37.0); MCV 89.7 fL (80.0-100.0); Mean Platelet Volume 9.6; Monocytes # (A) 0.7 k/uL (0-1.0); Monocytes % (A) 5 %; Neutrophils # (A) 11.9 k/uL (1.3-7.7); Neutrophils % (A) 91 %; RBC 5.06 m/uL (3.80-5.40); RDW 14.4 % (11.5-15.5); WBC 13.1 k/uL (3.8-10.6)
[2022-09-02 06:17] LABS: HGB 15.2 gm/dL (11.4-16.0); Platelet Count 144 k/uL (150-450)
[2022-09-02 06:26] LABS: Albumin 3.1 g/dL (3.5-5.0); Calcium 7.6 mg/dL (8.4-10.2); Magnesium 2.8 mg/dL (1.6-2.3); Phosphorus 3.2 mg/dL (2.5-4.5); Potassium 3.4 mmol/L (3.5-5.1)
[2022-09-02] MEDS ORDERED: NON FORMULARY DRUG (Lactose-Reduced Food [Boost] 237 ML Ml) PO SCH (09:00)
[2022-09-02] MEDS: CYANOCOBALAMIN 500 MCG TAB PO SCH (10:11)
[2022-09-02] MEDS: CALCIUM CARB-VIT D 500 MG-5 MCG TAB PO SCH (10:11)
[2022-09-02] MEDS: DONEPEZIL 10 MG TAB PO SCH (10:11)
[2022-09-02] MEDS: PANTOPRAZOLE 40 MG TABLET PO SCH (10:11)
[2022-09-02] MEDS ORDERED: DEXTROSE 5% IN WATER 1,000 ML IV ONE (10:40)
--- NOTE | 2022-09-02 12:47 | P.CNNES ---
History of Present Illness Consult date: 09/02/22 Requesting physician: Prakash Willett Reason for Consult: mental status changes History of Present Illness: This is a 77-year-old woman with dementia, atrial fibrillation on xarelto who presented emergency department because of a fall. Some of the history is obtained from medical record since patient is unable to provide a history. It seems that the patient was found down on the ground by family members and the last time she was seen by family members was 3 days ago. At that she has history of dementia and lives in an independent living facility and unsure how the patient fell. It seems that per the family that she's not good taken her medication apparently has not taken medication for the past several days. Some of the workup during this hospital visit consisted of: Patient is afebrile. Initial hemoglobin is 21.8 hematocrit 64.6 and the repeat it is resolved. Initial white blood cells 6.9 thousand. Is 13.1 Initial sodium is 150 2 repeat is 155. AST and ALT AST of 58 while ALT 38. CK level is 447. Creatinine is 1.85 and the BUN/creatinine is the 103 is trending down somewhat. Urinalysis seems to be suggestive of possible urinary tract infection. CT of the head is reported as no acute intracranial process. Nonspecific white matter changes, likely secondary due to chronic small vessel ischemic disease. I personally reviewed the CT the head CT cervical spine is reported as no evidence of cervical spine fracture. Mild multilevel degenerative disc disease. Pulmonary vascular congestion correlate for congestive heart failure. EKG is reported as sinus rhythm. Right bundle branch block. Left anterior fascicular block. Abnormal EKG. Review of Systems Review of system: The 12 point system was reviewed and apparent positive and negative per HPI. Past Medical History Past Medical History: Atrial Fibrillation, Coronary Artery Disease (CAD), CVA/TIA, Dementia, Hyperlipidemia, Memory Impairment, Syncope Additional Past Medical History / Comment(s): 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 History of Any Multi-Drug Resistant Organisms: None Reported Past Surgical History: Cholecystectomy, Heart Catheterization, Hysterectomy Additional Past Surgical History / Comment(s): bilateral cataract SX, bilateral eyelid surgery, varicose veins in bilateral legs Past Anesthesia/Blood Transfusion Reactions: No Reported Reaction Additional Past Anesthesia/Blood Transfusion Reaction / Comment(s): NO transfusion to date Smoking Status: Never smoker - Past Family History Mother Family Medical History: No Reported History Father Family Medical History: No Reported History Medications and Allergies Home Medications Medication Instructions Recorded Confirmed Type Atorvastatin [Lipitor] 20 mg PO HS 02/09/17 09/01/22 History Cyanocobalamin (Vitamin B-12) 1,000 mcg PO DAILY 02/09/17 09/01/22 History [Vitamin B-12] Alendronate Sodium [Fosamax] 35 mg PO WHITE@0900 07/15/21 09/01/22 History Oxybutynin Chloride [Ditropan XL] 10 mg PO Q2D@2100 07/15/21 09/01/22 History Rivaroxaban [Xarelto] 20 mg PO HS 07/15/21 09/01/22 History Hai/D3/Mag11/Zinc/Drier Attendant/Adonis/Bor 1 tab PO DAILY 09/01/22 09/01/22 History [Caltrate 600+D Plus Tablet] Donepezil [Aricept] 10 mg PO DAILY 09/01/22 09/01/22 History Lactose-Reduced Food [Boost] 237 ml PO DAILY 09/01/22 09/01/22 History Allergies Allergy/AdvReac Type Severity Reaction Status Date / Time cat dander Allergy Unknown Verified 09/01/22 21:54 dog dander Allergy Unknown Verified 09/01/22 21:54 Iodinated Contrast Media Allergy Unknown Verified 09/01/22 21:54 [Iodinated Contrast- Oral and IV Dye] mold Allergy Unknown Verified 09/01/22 21:54 Physical Examination - Vital Signs Vital Signs: Vital Signs Temp Pulse Resp BP Pulse Ox 09/02/22 12:15 98 F 89 20 175/89 95 09/02/22 09:00 88 18 156/76 93 L 09/02/22 06:32 90 18 160/77 94 L 09/02/22 05:39 92 16 96 09/02/22 03:50 94 16 172/78 97 09/02/22 01:12 96 16 180/92 96 09/02/22 00:11 108 H 16 170/70 97 09/01/22 22:54 87 16 190/87 94 L 09/01/22 19:53 104 H 12 194/96 97 09/01/22 18:23 97.8 F 104 H 18 169/81 93 L Intake and Output 09/01/22 09/02/22 09/02/22 22:59 06:59 14:59 Other: Weight 77.111 kg 77.111 kg GENERAL: The patient is laying in bed and is not in acute distress. CHEST: The heart rate is regular rate rhythm. No murmurs to auscultation. LUNG: Clear to auscultation bilaterally no wheezing noted throughout. Not la bored breathing. ABDOMEN/GI: Bowel sounds present in all 4 quadrants. No tenderness to palpation throughout. NEUROLOGICAL: Higher mental function: The patient is awake, alert, oriented to self. Did not respond to place or time. Seems somewhat restless. Slow responding to questions. Patient is following simple commands. Language is limited. No neglect. Cranial nerves: The pupils are round, equal and reactive to light and accommodation. Visual ye are full to confrontation throughout. Extraocular movement is intact no nystagmus is noted. Facial sensation is normal to touch throughout. The facial strength is normal throughout. Hearing is moderately decreased bilaterally to hand rub. Tongue is midline and moved [id number] without any difficulty. No dysarthria is noted. Shoulder shrug is normal bilaterally. Motor: The strength is left upper is 4+ on first try and repeated was normal. Right upper is 5/5. Is able to bend knees above gravity. Normal tone and bulk. Cerebellum: Normal finger to nose bilaterally. Sensation: Sensation is normal to touch throughout. Reflexes (right/left): 1+ throughout Plantars are mute bilaterally. Results - Laboratory Findings CBC and BMP: 09/02/22 05:41 09/02/22 05:41 Abnormal Lab Findings: Abnormal Labs 09/01/22 09/01/22 09/01/22 18:44 18:44 21:27 WBC RBC 7.45 H Hgb 21.8 H* Hct 64.6 H* Plt Count 88 L Neutrophils # Lymphocytes # 0.1 L Sodium 152 H Potassium Chloride 117 H Carbon Dioxide BUN 103 H* Creatinine 1.85 H Glucose 135 H Calcium 8.3 L Magnesium Total Bilirubin 1.6 H AST 58 H ALT 38 H Creatine Kinase Total Protein Albumin Urine Appearance Cloudy H Urine Protein 1+ H Urine Ketones Trace H Urine Blood Moderate H Ur Leukocyte Esterase Large H Urine RBC 7 H Urine WBC 58 H Urine Bacteria Occasional H 09/01/22 09/02/22 09/02/22 21:27 05:41 05:41 WBC 13.1 H RBC Hgb Hct Plt Count 144 L D Neutrophils # 11.9 H Lymphocytes # 0.2 L Sodium 155 H Potassium 3.4 L Chloride 126 H Carbon Dioxide 21 L BUN 79 H Creatinine 1.42 H Glucose 123 H Calcium 7.6 L Magnesium 2.8 H Total Bilirubin AST 45 H ALT 37 H Creatine Kinase 447 H Total Protein 6.0 L Albumin 3.1 L Urine Appearance Urine Protein Urine Ketones Urine Blood Ur Leukocyte Esterase Urine RBC Urine WBC Urine Bacteria Assessment and Plan Assessment: Altered mental status and appears due to metabolic encephalopathy (hypernatremia, increase BUN/Cr and slight elevated AST/ALT due to dehydration) and underlying UTI Fall of unknown cause. Rule out stroke (on my initial exam has some weakness of left upper but on repeated was symmetrical). Possibly due to above Probable acute UTI Acute kidney insufficiency and seems due to dehydration Dementia Atrial fibrillation on Xarelto History of stroke/TIA Plan: I'll get a repeat CAT scan for tomorrow since the patient would not lay still for MRI today but if she is able to cooperate recommend pursuing MRI Brain to rule out acute/subacute ischemic stroke. Patient does have a stroke THE rest of the stroke workup I ordered routine EEG because of the patient completed and to rule out any underlying seizure which seems unlikely. According to the ED note the patient's was not taking her medication for the past couple days. Resumed her Xarelto and statin 20mg qhs and is sufficient for secondary stroke prophylaxis. Continue neuro checks PT and OT are consulted Patient is on fall precautions We'll defer the rest of the medical management to primary team The plan is discussed with primary attending. Thank you for the consultation. Time with Patient: Greater than 30
--- NOTE | 2022-09-02 14:00 | P.HPIM ---
History of Present Illness 77-year-old pleasant female Any had history of dementia although alert oriented 3 was born the emergency department because of fall and patient is not be feeling well. Patient denied any diarrhea nausea vomiting. Does have a fever chills no evidence of infection at this time. Patient is hyponatremic patient appeared to be dehydrated. Patient the had highly elevated sodium of 152 received IV fluids last night which worsen her sodium and chloride patient will be started on D5 water. Neurology evaluated the patient. In mental status although it appears to be at her baseline. Patient does have some leukocytosis no fever CT of the head did not show any significant abnormality CT cervical spine did not show any significant abnormality chest x-ray was read as can start failure although patient clinically is not in heart failure patient doesn't have any clear evidence of for heart failure or even on the chest x-ray. She had BNP of around 335. Has significant generalized weakness without any focal weakness. His urine is bit abnormal with the some leukocyte esterase and white blood cell in the urine along with bacteria although patient doesn't have any symptoms of UTI REVIEW OF SYSTEMS: CONSTITUTIONAL: No fever, no malaise, no fatigue. HEENT: No recent visual problems or hearing problems. Denied any sore throat. CARDIOVASCULAR: No chest pain, orthopnea, PND, no palpitations, no syncope. PULMONARY: No shortness of breath, no cough, no hemoptysis. GASTROINTESTINAL: No diarrhea, no nausea, no vomiting, no abdominal pain. NEUROLOGICAL: No headaches, no weakness, no numbness. HEMATOLOGICAL: Denies any bleeding or petechiae. GENITOURINARY: Denies any burning micturition, frequency, or urgency. MUSCULOSKELETAL/RHEUMATOLOGICAL: Denies any joint pain, swelling, or any muscle pain. ENDOCRINE: Denies any polyuria or polydipsia. The rest of the 14-point review of systems is negative. PHYSICAL EXAMINATION: GENERAL: The patient is alert and oriented x3, not in any acute distress. Well developed, well nourished. HEENT: Pupils are round and equally reacting to light. EOMI. No scleral icterus. No conjunctival pallor. Normocephalic, atraumatic. No pharyngeal erythema. No thyromegaly. CARDIOVASCULAR: S1 and S2 present. No murmurs, rubs, or gallops. PULMONARY: Chest is clear to auscultation, no wheezing or crackles. ABDOMEN: Soft, nontender, nondistended, normoactive bowel sounds. No palpable organomegaly. MUSCULOSKELETAL: No joint swelling or deformity. EXTREMITIES: No cyanosis, clubbing, or pedal edema. NEUROLOGICAL: Gross neurological examination did not reveal any focal deficits. SKIN: No rashes. Assessment and plan -Hypovolemic hypernatremia: Secondary to intravascular depletion dehydration secondary to poor by mouth intake patient will be started on D5 water repeat electrolytes tomorrow [id number] gap metabolic acidosis secondary to hyperchloremia IV fluids with D5 water as mentioned above -Possible dementia although it appears to be mild to moderate -generalized weakness secondary to age-related muscle atrophy physical. Patient of evaluation and the patient will benefit from vitamin D upon discharge patient will benefit from a physical therapy and occupational therapy evaluation here -Is symptomatic bacteriuria will not require any antibiotics antibodies will be discussing reviewed -Patient is not encephalopathic doesn't have any altered mental status when I evaluated the patient frequent falls secondary to generalized deconditioning -Mild acute renal failure secondary to dehydration -Atrial fibrillation on anti-correlation which will be continued -History of CVA in the past DVT prophylaxis: On anticoagulation which will be resumed Past Medical History Past Medical History: Atrial Fibrillation, Coronary Artery Disease (CAD), CVA/TIA, Dementia, Hyperlipidemia, Memory Impairment, Syncope Additional Past Medical History / Comment(s): 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 History of Any Multi-Drug Resistant Organisms: None Reported Past Surgical History: Cholecystectomy, Heart Catheterization, Hysterectomy Additional Past Surgical History / Comment(s): bilateral cataract SX, bilateral eyelid surgery, varicose veins in bilateral legs Past Anesthesia/Blood Transfusion Reactions: No Reported Reaction Additional Past Anesthesia/Blood Transfusion Reaction / Comment(s): NO transfusion to date Smoking Status: Never smoker - Past Family History Mother Family Medical History: No Reported History Father Family Medical History: No Reported History Medications and Allergies Home Medications Medication Instructions Recorded Confirmed Type Atorvastatin [Lipitor] 20 mg PO HS 02/09/17 09/01/22 History Cyanocobalamin (Vitamin B-12) 1,000 mcg PO DAILY 02/09/17 09/01/22 History [Vitamin B-12] Alendronate Sodium [Fosamax] 35 mg PO WHITE@0900 07/15/21 09/01/22 History Oxybutynin Chloride [Ditropan XL] 10 mg PO Q2D@2100 07/15/21 09/01/22 History Rivaroxaban [Xarelto] 20 mg PO HS 07/15/21 09/01/22 History Hai/D3/Mag11/Zinc/Chemical Unit Operator/Adonis/Bor 1 tab PO DAILY 09/01/22 09/01/22 History [Caltrate 600+D Plus Tablet] Donepezil [Aricept] 10 mg PO DAILY 09/01/22 09/01/22 History Lactose-Reduced Food [Boost] 237 ml PO DAILY 09/01/22 09/01/22 History Allergies Allergy/AdvReac Type Severity Reaction Status Date / Time cat dander Allergy Unknown Verified 09/01/22 21:54 dog dander Allergy Unknown Verified 09/01/22 21:54 Iodinated Contrast Media Allergy Unknown Verified 09/01/22 21:54 [Iodinated Contrast- Oral and IV Dye] mold Allergy Unknown Verified 09/01/22 21:54 Physical Exam Vitals: Vital Signs Temp Pulse Resp BP Pulse Ox 09/02/22 12:15 98 F 89 20 175/89 95 09/02/22 09:00 88 18 156/76 93 L 09/02/22 06:32 90 18 160/77 94 L 09/02/22 05:39 92 16 96 09/02/22 03:50 94 16 172/78 97 09/02/22 01:12 96 16 180/92 96 09/02/22 00:11 108 H 16 170/70 97 09/01/22 22:54 87 16 190/87 94 L 09/01/22 19:53 104 H 12 194/96 97 09/01/22 18:23 97.8 F 104 H 18 169/81 93 L Intake and Output 09/01/22 09/02/22 09/02/22 22:59 06:59 14:59 Other: # Bowel Movements 1 Weight 77.111 kg 77.111 kg Results CBC & Chem 7: 09/02/22 05:41 09/02/22 05:41 Labs: Abnormal Lab Results - Last 24 Hours (Table) 09/01/22 09/01/22 09/01/22 Range/Units 18:44 18:44 21:27 WBC (3.8-10.6) k/uL RBC 7.45 H (3.80-5.40) m/uL Hgb 21.8 H* (11.4-16.0) gm/dL Hct 64.6 H* (34.0-46.0) % Plt Count 88 L (150-450) k/uL Neutrophils # (1.3-7.7) k/uL Lymphocytes # 0.1 L (1.0-4.8) k/uL Sodium 152 H (137-145) mmol/L Potassium (3.5-5.1) mmol/L Chloride 117 H (98-107) mmol/L Carbon Dioxide (22-30) mmol/L BUN 103 H* (7-17) mg/dL Creatinine 1.85 H (0.52-1.04) mg/dL Glucose 135 H (74-99) mg/dL Calcium 8.3 L (8.4-10.2) mg/dL Magnesium (1.6-2.3) mg/dL Total Bilirubin 1.6 H (0.2-1.3) mg/dL AST 58 H (14-36) U/L ALT 38 H (4-34) U/L Creatine Kinase (30-135) U/L Total Protein (6.3-8.2) g/dL Albumin (3.5-5.0) g/dL Urine Appearance Cloudy H (Clear) Urine Protein 1+ H (Negative) Urine Ketones Trace H (Negative) Urine Blood Moderate H (Negative) Ur Leukocyte Esterase Large H (Negative) Urine RBC 7 H (0-5) /hpf Urine WBC 58 H (0-5) /hpf Urine Bacteria Occasional H (None) /hpf 09/01/22 09/02/22 09/02/22 Range/Units 21:27 05:41 05:41 WBC 13.1 H (3.8-10.6) k/uL RBC (3.80-5.40) m/uL Hgb (11.4-16.0) gm/dL Hct (34.0-46.0) % Plt Count 144 L D (150-450) k/uL Neutrophils # 11.9 H (1.3-7.7) k/uL Lymphocytes # 0.2 L (1.0-4.8) k/uL Sodium 155 H (137-145) mmol/L Potassium 3.4 L (3.5-5.1) mmol/L Chloride 126 H (98-107) mmol/L Carbon Dioxide 21 L (22-30) mmol/L BUN 79 H (7-17) mg/dL Creatinine 1.42 H (0.52-1.04) mg/dL Glucose 123 H (74-99) mg/dL Calcium 7.6 L (8.4-10.2) mg/dL Magnesium 2.8 H (1.6-2.3) mg/dL Total Bilirubin (0.2-1.3) mg/dL AST 45 H (14-36) U/L ALT 37 H (4-34) U/L Creatine Kinase 447 H (30-135) U/L Total Protein 6.0 L (6.3-8.2) g/dL Albumin 3.1 L (3.5-5.0) g/dL Urine Appearance (Clear) Urine Protein (Negative) Urine Ketones (Negative) Urine Blood (Negative) Ur Leukocyte Esterase (Negative) Urine RBC (0-5) /hpf Urine WBC (0-5) /hpf Urine Bacteria (None) /hpf Microbiology - Last 24 Hours (Table) 09/01/22 21:27 Urine Culture - Preliminary Urine,Voided Thrombosis Risk Factor Assmnt - Choose All That Apply Any of the Below Risk Factors Present?: Yes Each Factor Represents 1 point: Obesity (BMI >25) Other Risk Factors: No Other congenital or acquired thrombophilia - If yes, enter type in comment: No Thrombosis Risk Factor Assessment Total Risk Factor Score: 1 Thrombosis Risk Factor Assessment Level: Low Risk
[2022-09-02] MEDS: RIVAROXABAN 20 MG TAB PO SCH (20:17)
[2022-09-02] MEDS: ATORVASTATIN 20 MG TAB PO SCH (20:17)
[2022-09-03] MEDS: PANTOPRAZOLE 40 MG TABLET PO SCH (06:25)
[2022-09-03 08:03] LABS: HGB 13.4 gm/dL (11.4-16.0); MCH 29.2 pg (25.0-35.0); MCHC 32.7 g/dL (31.0-37.0); MCV 89.3 fL (80.0-100.0); Mean Platelet Volume 9.4; Platelet Count 142 k/uL (150-450); RBC 4.59 m/uL (3.80-5.40); RDW 14.2 % (11.5-15.5); WBC 9.9 k/uL (3.8-10.6)
[2022-09-03 08:18] LABS: Calcium 7.5 mg/dL (8.4-10.2); Potassium 3.5 mmol/L (3.5-5.1)
[2022-09-03] MEDS: CYANOCOBALAMIN 500 MCG TAB PO SCH (08:45)
[2022-09-03] MEDS: DONEPEZIL 10 MG TAB PO SCH (08:45)
[2022-09-03] MEDS: CALCIUM CARB-VIT D 500 MG-5 MCG TAB PO SCH (08:45)
[2022-09-03 11:13] VITALS: BMI 26.6
--- NOTE | 2022-09-03 11:28 | CT ---
EXAMINATION TYPE: CT brain wo con DATE OF EXAM: 09/03/2022 COMPARISON: 09/01/2022 HISTORY: AMS, weakness CT DLP: 1145.[address] of the brain was performed. The ventricles, basal cisterns and sulci overlying the cerebral convexities demonstrate mild enlargem ent. There is no evidence for intracranial hemorrhage or sulcal effacement. There is decreased attenuation about the periventricular white matter and deep white matter of both c erebral hemispheres, compatible with chronic small vessel ischemia. Differential diagnosis does inclu de demyelination. No mass effects are seen.No midline shift. Osseous calvarium is intact. If symptoms persist consider MRI. IMPRESSION: 1. Age related atrophic and chronic small vessel ischemic change without acute intracranial process s een at this time.
--- NOTE | 2022-09-03 15:32 | P.PN ---
Subjective Progress Note Date: 09/03/22 The patient is seen at bedside and feels is doing better. She states she has old left upper extremity weakness. Per N.P. from primary team she failed swallow test. According to patient she resides by herself in assisted living facility and is at baseline currently. She is currently working with physical therapy and walking without assistance. Objective - Vital Signs Vital signs: Vital Signs Temp 97.6 F 09/03/22 08:45 Pulse 84 09/03/22 11:10 Resp 17 09/03/22 11:10 BP 128/65 09/03/22 11:10 Pulse Ox 95 09/03/22 11:10 FiO2 Intake & Output 09/02/22 09/03/22 09/03/22 18:59 06:59 18:59 Intake Total 118 240 Output Total 750 300 Balance 118 -750 -60 Weight 77.111 kg 77.111 kg Intake: Oral 118 240 Output: Urine 750 300 Other: Voiding Method External Catheter External Catheter External Catheter # Bowel Movements 1 - Exam GENERAL: The patient is walking with physical therapy and is not in acute distress. NEUROLOGICAL: Higher mental function: The patient is awake, alert, oriented to self, place. Did not respond to time. She is much more awake and responsive today compared to yesterday. Patient is following simple commands. No aphasia or neglect. Cranial nerves: The pupils are round, equal and reactive to light . Visual ye are full to confrontation throughout. Extraocular movement is intact no nystagmus is noted. Facial sensation is normal to touch throughout. The facial strength is normal throughout. Hearing is moderately decreased bilaterally to hand rub. Tongue is midline and moved [id number] without any difficulty. No dysarthria is noted. Shoulder shrug is normal bilaterally. Motor: Gait is walking with walker on her own without any assistance. The strength is left upper is 4+ (stated old). Right upper is 5 and lowers are 5-. Normal tone and bulk. Cerebellum: Normal finger to nose bilaterally. Sensation: Sensation is normal to touch throughout. Reflexes (right/left): 1+ throughout Plantars are mute bilaterally. Some of the workup during this hospital visit consisted of: Urine culture is positive for gram positive bacilli. AST and ALT AST of 58 while ALT 38. CK level is 447. Creatinine is 1.85 and the BUN/creatinine is the 103 is trending down somewhat. Urinalysis seems to be suggestive of possible urinary tract infection. CT of the head is reported as no acute intracranial process. Nonspecific white matter changes, likely secondary due to chronic small vessel ischemic disease. I personally reviewed the CT the head CT cervical spine is reported as no evidence of cervical spine fracture. Mild multilevel degenerative disc disease. Pulmonary vascular congestion correlate for congestive heart failure. EKG is reported as sinus rhythm. Right bundle branch block. Left anterior fascicular block. Abnormal EKG. - Labs CBC & Chem 7: 09/03/22 06:45 09/03/22 06:45 Labs: Abnormal Lab Results - Last 24 Hours (Table) 09/03/22 09/03/22 Range/Units 06:45 06:45 Plt Count 142 L (150-450) k/uL Chloride 115 H (98-107) mmol/L BUN 52 H (7-17) mg/dL Creatinine 1.27 H (0.52-1.04) mg/dL Glucose 103 H (74-99) mg/dL Calcium 7.5 L (8.4-10.2) mg/dL Microbiology - Last 24 Hours (Table) 09/01/22 23:25 Blood Culture Gram Stain - Preliminary Blood 09/01/22 23:25 Blood Culture - Final Blood 09/01/22 21:27 Urine Culture - Preliminary Urine,Voided Gram Neg Bacilli Assessment and Plan Assessment: Altered mental status and appears due to metabolic encephalopathy and underlying UTI (hypernatremia, increase BUN/Cr and slight elevated AST/ALT due to dehydration) Fall of unknown cause possibly due to above. Dysphagia: Rule out acute to subacute ischemic stroke. Has old stroke (left upper extremity residual weakness according to patient) Acute UTI Acute kidney insufficiency and seems due to dehydration Dementia Atrial fibrillation on Xarelto History of stroke/TIA Plan: Repeat CT of the head is reported as age-related atrophic and chronic small vessel ischemic change without acute intracranial process seen at this time. Ordered MRI Brain to rule out acute to subacute ischemic stroke since has dysphagia. If she does have acute stroke will get rest of stroke work-up. Pending routine EEG because of the patient completed and to rule out any underlying seizure which seems unlikely. Resumed her Xarelto and statin 20mg qhs and is sufficient for secondary stroke prophylaxis. Continue neuro checks PT and OT are consulted Patient is on fall precautions We'll defer the rest of the medical management to primary team The plan is discussed with primary team and patient. Time with Patient: Less than 30
--- NOTE | 2022-09-03 17:04 | P.PN ---
Subjective Progress Note Date: 09/03/22 77-year-old pleasant female Any had history of dementia although alert oriented 3 was born the emergency department because of fall and patient is not be feeling well. Patient denied any diarrhea nausea vomiting. Does have a fever chills no evidence of infection at this time. Patient is hyponatremic patient appeared to be dehydrated. Patient the had highly elevated sodium of 152 received IV fluids last night which worsen her sodium and chloride patient will be started on D5 water. Neurology evaluated the patient. In mental status although it appears to be at her baseline. Patient does have some leukocytosis no fever CT of the head did not show any significant abnormality CT cervical spine did not show any significant abnormality chest x-ray was read as can start failure although patient clinically is not in heart failure patient doesn't have any clear evidence of for heart failure or even on the chest x-ray. She had BNP of around 335. Has significant generalized weakness without any focal weakness. His urine is bit abnormal with the some leukocyte esterase and white blood cell in the urine along with bacteria although patient doesn't have any symptoms of UTI 09/03/2022 Patient evaluated today sitting up in bed with daughter at bedside. She is alert x 3. She has old left sided weakness. During exam she was noted to have some coughing after drinking her water, she was using a straw. Speech therapy evaluation requested and patient was downgraded to a nectar thick diet. There is some concern for acute stroke and neurology recommending to undergo brain MRI and also EEG. Cultures are showing gram negative bacteremia and also has gram negative bacteremia she is resumed on IV ceftriaxone 2grams and repeat cultures are taken today. She has no urinary symptoms. Today her white count has normalized to 9.9. Sodium has also improved to 145 and creatinine is down to 1.27. Afebrile, heart rate 95, blood pressure 118/72, 98% room air. Review of Systems Constitutional: Denied any fatigue denied any fever. Cardio vascular: denied any chest pain, palpitations Gastrointestinal: denied any nausea, vomiting, diarrhea Pulmonary: Denied any shortness of breath cough Neurologic denied any new focal deficits All inpatient medications were reviewed and appropriate changes in these medications as dictated in the interval history and assessment and plan. PHYSICAL EXAMINATION: GENERAL: The patient is alert and oriented x3, not in any acute distress. Well developed, well nourished. HEENT: Pupils are round and equally reacting to light. EOMI. No scleral icterus. No conjunctival pallor. Normocephalic, atraumatic. No pharyngeal erythema. No thyromegaly. CARDIOVASCULAR: S1 and S2 present. No murmurs, rubs, or gallops. PULMONARY: Chest is clear to auscultation, no wheezing or crackles. ABDOMEN: Soft, nontender, nondistended, normoactive bowel sounds. No palpable organomegaly. MUSCULOSKELETAL: No joint swelling or deformity. EXTREMITIES: No cyanosis, clubbing, or pedal edema. NEUROLOGICAL: Gross neurological examination did not reveal any focal deficits. SKIN: No rashes. Assessment and plan -Altered mental status secondary to acute metabolic encephalopathy from underlying infection with UTI rule out stroke also. -Acute urinary tract infection with sepsis present on admission with gram negative bacilli currently on IV ceftriaxone. -Dysphagia possible stroke rule out with MRI pending, neurology following -Hypovolemic hypernatremia: Secondary to intravascular depletion dehydration secondary to poor by mouth intake patient will be started on D5 water and sodium has improved to 145 -non-anion gap metabolic acidosis secondary to hyperchloremia IV fluids with D5 water as mentioned above, improving chloride currently 115. -Possible dementia although it appears to be mild to moderate -generalized weakness secondary to age-related muscle atrophy physical. PT and OT evaluation. -Mild acute renal failure secondary to dehydration improving -Atrial fibrillation on anti-coagulation which will be continued -History of CVA in the past with residual left upper weakness DVT prophylaxis: On anticoagulation which will be resumed GI prophylaxis: On protonix Full Code The impression and plan of care has been dictated by Nereyda Peña, Nurse Practitioner as directed. Dr. Charlotte MD I have performed a history and physical examination and medical decision making of this patient, discussed the same with the dictator, and agree with the dictators assessment and plan as written, documented as a scribe. Based on total visit time, I have performed more than 50% of this visit. Objective - Vital Signs Vital signs: Vital Signs Temp 97.5 F L 09/03/22 16:05 Pulse 95 09/03/22 16:05 Resp 17 09/03/22 16:05 BP 118/72 09/03/22 16:05 Pulse Ox 98 09/03/22 16:05 FiO2 Intake & Output 09/02/22 09/03/22 09/03/22 18:59 06:59 18:59 Intake Total 118 240 Output Total 750 300 Balance 118 -750 -60 Weight 77.111 kg 77.111 kg Intake: Oral 118 240 Output: Urine 750 300 Other: Voiding Method External Catheter External Catheter External Catheter # Bowel Movements 1 - Labs CBC & Chem 7: 09/03/22 06:45 09/03/22 06:45 Labs: Abnormal Lab Results - Last 24 Hours (Table) 09/03/22 09/03/22 Range/Units 06:45 06:45 Plt Count 142 L (150-450) k/uL Chloride 115 H (98-107) mmol/L BUN 52 H (7-17) mg/dL Creatinine 1.27 H (0.52-1.04) mg/dL Glucose 103 H (74-99) mg/dL Calcium 7.5 L (8.4-10.2) mg/dL Microbiology - Last 24 Hours (Table) 09/01/22 23:25 Blood Culture Gram Stain - Preliminary Blood 09/01/22 23:25 Blood Culture - Final Blood 09/01/22 21:27 Urine Culture - Preliminary Urine,Voided Gram Neg Bacilli Assessment and Plan Time with Patient: Less than 30
[2022-09-03] MEDS: RIVAROXABAN 20 MG TAB PO SCH (20:26)
[2022-09-03] MEDS: ATORVASTATIN 20 MG TAB PO SCH (20:26)
[2022-09-03] MEDS ORDERED: OXYBUTYNIN 10 MG TAB.ER.24 PO SCH (21:00)
--- NOTE | 2022-09-03 22:47 | EEG ---
ELECTROENCEPHALOGRAM REPORT CLINICAL HISTORY: This is a 77-year-old woman with altered mental status. The video EEG is obtained to evaluate for seizure epileptiform activity. RELEVANT MEDICATION: The patient is not on any antiepileptic drugs. EEG TYPE: A routine 21-channel EEG is performed with video using the 10/20 electrode placement system. DESCRIPTION: Wakefulness and drowsiness are obtained. During awake state, the background consists of [id number] voltage of 7 to 8 hertz activity that is well modulated and well sustained. There is no physiological stage 2 sleep architecture seen. There is no focal slowing. Interictal and ictal is none. ACTIVATION PROCEDURES: Photic stimulation did not evoke a posterior driving response. There is no abnormality during the photic stimulation. Hyperventilation is not performed. CLINICAL INTERPRETATION: This is an abnormal routine EEG. The background slowing is suggestive of mild encephalopathy likely due to toxic-metabolic derangement. Otherwise, there is no focal slowing, epileptiform discharge, or seizure on the EEG. Clinical correlation is recommended. MMRUSSELL / SAUL: [id number] / [facility]ALTanmay
--- NOTE | 2022-09-03 23:11 | P.CONS ---
History of Present Illness - Reason for Consult Consult date: 09/03/22 Bacteremia Requesting physician: Nereyda Peña - Chief Complaint Weakness and fall x few days ago - History of Present Illness Patient is a 77 year old female who was brought into the ER by EMS for evaluation of fall apparently the patient was found down on the ground by the family and has been seen 3 days prior to that it is not very clear when exactly the patient fell and has been on the ground patient did not recall what happened when he fell down patient currently denies having any headache or URI symptoms patient denies having any chest pain however has been complaining of coughing especially after eating her meal mostly dry in nature patient denies having any abdominal pain no diarrhea or constipation and no significant urinary symptoms on presentation to the hospital the patient has been afebrile and no fever has been recorded subsequently patient was noticed to have elevated BUN and creatinine as well as in liver enzymes and complaint of dehydration also have elevated white count patient blood cultures [place] in the positive with gram- negative bacilli patient is on Rocephin and infectious disease was consulted for further management of antibiotic therapy Review of Systems Positive point has been mentioned in the HPI rest of the systems are negative Past Medical History Past Medical History: Atrial Fibrillation, Coronary Artery Disease (CAD), CVA/TIA, Dementia, Hyperlipidemia, Memory Impairment, Syncope Additional Past Medical History / Comment(s): 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 History of Any Multi-Drug Resistant Organisms: None Reported Past Surgical History: Cholecystectomy, Heart Catheterization, Hysterectomy Additional Past Surgical History / Comment(s): bilateral cataract SX, bilateral eyelid surgery, varicose veins in bilateral legs Past Anesthesia/Blood Transfusion Reactions: No Reported Reaction Additional Past Anesthesia/Blood Transfusion Reaction / Comm: NO transfusion to date Smoking Status: Never smoker - Past Family History Mother Family Medical History: No Reported History Father Family Medical History: No Reported History Medications and Allergies Home Medications Medication Instructions Recorded Confirmed Type Atorvastatin [Lipitor] 20 mg PO HS 02/09/17 09/01/22 History Cyanocobalamin (Vitamin B-12) 1,000 mcg PO DAILY 02/09/17 09/01/22 History [Vitamin B-12] Alendronate Sodium [Fosamax] 35 mg PO WHITE@0900 07/15/21 09/01/22 History Oxybutynin Chloride [Ditropan XL] 10 mg PO Q2D@2100 07/15/21 09/01/22 History Rivaroxaban [Xarelto] 20 mg PO HS 07/15/21 09/01/22 History Hai/D3/Mag11/Zinc/Circuit Board Inspector/Adonis/Bor 1 tab PO DAILY 09/01/22 09/01/22 History [Caltrate 600+D Plus Tablet] Donepezil [Aricept] 10 mg PO DAILY 09/01/22 09/01/22 History Lactose-Reduced Food [Boost] 237 ml PO DAILY 09/01/22 09/01/22 History Allergies Allergy/AdvReac Type Severity Reaction Status Date / Time cat dander Allergy Unknown Verified 09/01/22 21:54 dog dander Allergy Unknown Verified 09/01/22 21:54 Iodinated Contrast Media Allergy Unknown Verified 09/01/22 21:54 [Iodinated Contrast- Oral and IV Dye] mold Allergy Unknown Verified 09/01/22 21:54 Physical Exam Vitals: Vital Signs Temp Pulse Resp BP Pulse Ox 09/03/22 08:45 97.6 F 89 18 132/67 97 09/03/22 04:00 98.2 F 79 19 120/75 93 L 09/03/22 00:00 82 18 149/72 97 09/02/22 20:00 98.0 F 86 19 131/71 96 09/02/22 16:50 98.4 F 91 16 143/74 95 09/02/22 13:00 20 09/02/22 12:55 97.7 F 85 16 154/79 94 L Intake and Output 09/02/22 09/03/22 09/03/22 22:59 06:59 14:59 Intake Total 118 240 Output Total 500 250 Balance -382 -250 240 Intake: Oral 118 240 Output: Urine 500 250 Other: Voiding Method External Catheter External Catheter External Catheter Weight 77.111 kg GENERAL DESCRIPTION: Elderly female lying in bed, no distress. No tachypnea or accessory muscle of respiration use. HEENT: Shows Pallor , no scleral icterus. Oral mucous membrane is dry. No pharyngeal erythema or thrush NECK: Trachea central, no thyromegaly. LUNGS: Unlabored breathing. Coarse breath sounds bilaterally. HEART: S1, S2, regular rate and rhythm. No loud murmur ABDOMEN: Soft, no tenderness , guarding or rigidity, no organomegaly EXTREMITIES: No edema of feet. SKIN: No rash, no masses palpable. NEUROLOGICAL: The patient is awake, alert, oriented x3, mood and affect normal. Results CBC & Chem 7: 09/03/22 06:45 09/03/22 06:45 Labs: Abnormal Lab Results - Last 24 Hours (Table) 09/02/22 09/03/22 09/03/22 Range/Units 05:41 06:45 06:45 Plt Count 142 L (150-450) k/uL Chloride 115 H (98-107) mmol/L BUN 52 H (7-17) mg/dL Creatinine 1.27 H (0.52-1.04) mg/dL Glucose 103 H (74-99) mg/dL Calcium 7.5 L (8.4-10.2) mg/dL Procalcitonin 1.16 H (0.02-0.09) ng/mL Microbiology - Last 24 Hours (Table) 09/01/22 23:25 Blood Culture Gram Stain - Preliminary Blood 09/01/22 23:25 Blood Culture - Final Blood 09/01/22 21:27 Urine Culture - Preliminary Urine,Voided Gram Neg Bacilli Assessment and Plan (1) Bacteremia Current Visit: Yes Status: Acute Code(s): R78.81 - BACTEREMIA SNOMED Code(s): 9853353 Plan: 1patient with gram-negative bacteremia questionable urinary source howeverIs more for possible hepatobiliary source as the patient did have elevated liver enzymes and also presented with a fall and weakness 2we will obtain ultrasound of the abdominal complete 3continue with Rocephin 2 g daily 4obtain swallow evaluation in view of significant coughing after eating her meal We will follow on clinical condition and cultures to further adjust medication if needed Thank you for this consultation will follow this patient with you
[2022-09-04] MEDS: PANTOPRAZOLE 40 MG TABLET PO SCH (06:23)
--- NOTE | 2022-09-04 08:20 | US ---
EXAMINATION TYPE: US abdomen complete DATE OF EXAM: 09/04/2022 COMPARISON: NONE CLINICAL HISTORY: Bacteremia and elevated liver enzymes. E TECHNIQUE: Multiple sonographic images of the abdomen are obtained. FINDINGS: EXAM MEASUREMENTS: Liver Length: 14 cm Gallbladder Wall: Surgically absent CBD: .7 cm Spleen: 13.2 cm Right Kidney: 10.5 x 4.9 x 5.3 cm Left Kidney: 10.2 x 5.3 x 4.6 cm PIPED BUTTONHOLE MACHINE OPERATOR NOTES: Pancreas: Tail obscured by overlying bowel gas Liver: wnl Gallbladder: Surgically absent Evidence for sonographic Henry's sign: No CBD: wnl Spleen: wnl Right Kidney: wnl Left Kidney: wnl Upper IVC: wnl Abd Aorta: wnl The liver is homogenous. The intrahepatic portion of the IVC and proximal abdominal aorta are within normal limits. There is no evidence of cholelithiasis. Common bile duct is unremarkable. The visu alized portions of the pancreas are homogenous. The spleen is unremarkable. Kidneys are symmetric a nd free of hydronephrosis. No renal lesions are seen. IMPRESSION: No discrete abnormality seen.
[2022-09-04 09:03] LABS: Potassium 3.5 mmol/L (3.5-5.1)
[2022-09-04] MEDS: CALCIUM CARB-VIT D 500 MG-5 MCG TAB PO SCH (09:22)
[2022-09-04] MEDS: DONEPEZIL 10 MG TAB PO SCH (09:23)
[2022-09-04] MEDS: CYANOCOBALAMIN 500 MCG TAB PO SCH (09:23)
--- NOTE | 2022-09-04 11:02 | MR ---
EXAMINATION TYPE: MR brain wo con DATE OF EXAM: 09/04/2022 COMPARISON: NONE HISTORY: Left upper extremity weakness, confusion, stroke TECHNIQUE: T1-weighted sagittal, T2, FLAIR, and diffusion axial, and T2 coronal coronal views of the brain are submitted. FINDINGS: There is no evidence of acute ischemia. The ventricles, basal cisterns, and sulci overlying the conv exities are consistent with moderate to severe generalized degenerative change with diffuse and numer ous focal areas of abnormal signal scattered throughout the white matter bilaterally.. There is no m ass effect. Craniocervical junction maintained. Sella turcica has a normal appearance. Changes of chronic sinusit is. As mild right mastoiditis. Orbits are symmetric. There is a mixed signal adjacent to the anterior margin of the body of the lateral ventricle bilaterally. The right suggestive of remote infarct. No cerebellopontine angle mass. Craniocervical junction maintained. Sella turcica and normal. IMPRESSION: 1. No acute ischemia identified. 2. Extensive degenerative and diffuse widespread abnormal signal throughout the white matter in a non specific pattern but most typical of remote ischemia. Slightly greater central dilation of the ventri cular system relative to the sulci can be associated with a component of normal pressure hydrocephalu s with transependymal edema which would also be in the differential diagnosis.
[2022-09-04 12:13] VITALS: BP 101/62; PULSE 90; RESP 18; TEMP 98.5
--- NOTE | 2022-09-04 12:26 | P.PN ---
Subjective Progress Note Date: 09/04/22 Principal diagnosis: E. coli urinary tract infection and bacteremia Patient is a 77 year old female who was brought into the ER by EMS for evaluation of fall apparently the patient was found down on the ground by the family and has been seen 3 days prior to that it is not very clear when exactly the patient fell and has been on the ground patient did not recall what h appened, patient did have evidence of E. coli UTI and bacteremia ultrasound abdominal did not show any dilated CBD gallbladder surgically absent and no evidence of any hydronephrosis or renal stones. on today's evaluation that is 09/04/2022, the patient denies having any fever or any chills, the patient is breathing comfortably on room air the patient denies having any chest pain occasional cough no nausea no vomiting no abdominal pain or diarrhea Objective - Vital Signs Vital signs: Vital Signs Temp 98.0 F 09/04/22 08:00 Pulse 82 09/04/22 08:00 Resp 20 09/04/22 08:00 BP 122/73 09/04/22 08:00 Pulse Ox 95 09/04/22 08:00 FiO2 Intake & Output 09/03/22 09/04/22 09/04/22 18:59 06:59 18:59 Intake Total 240 240 180 Output Total 300 700 Balance -60 -460 180 Weight 77.111 kg Intake: Oral 240 240 180 Output: Urine 300 700 Other: Voiding Method External Catheter External Catheter - Exam GENERAL DESCRIPTION: An elderly female lying in bed in no distress RESPIRATORY SYSTEM: Unlabored breathing , decreased breath sounds at bases HEART: S1 S2 regular rate and rhythm , ABDOMEN: Soft , no tenderness EXTREMITIES: No edema feet - Labs CBC & Chem 7: 09/03/22 06:45 09/04/22 07:51 Labs: Abnormal Lab Results - Last 24 Hours (Table) 09/04/22 Range/Units 07:51 Chloride 111 H (98-107) mmol/L BUN 39 H (7-17) mg/dL Creatinine 1.11 H (0.52-1.04) mg/dL Calcium 8.0 L (8.4-10.2) mg/dL Microbiology - Last 24 Hours (Table) 09/01/22 23:25 Blood Culture Gram Stain - Preliminary Blood Blood Culture - Preliminary Escherichia coli 09/01/22 23:25 Blood Culture - Final Blood 09/01/22 21:27 Urine Culture - Preliminary Urine,Voided Gram Neg Bacilli Assessment and Plan (1) Bacteremia Current Visit: Yes Status: Acute Code(s): R78.81 - BACTEREMIA SNOMED Code(s): 5426120 Plan: 1patient with gram-negative bacteremia questionable urinary source howeverIs more for possible hepatobiliary source as the patient did have elevated liver enzymes and also presented with a fall and weakness 2 ultrasound of the abdominal complete did not show any acute abnormality 3patient to continue with Rocephin 2 g daily with a plan to finish therapy with oral antibiotics Daughter at the bedside and multiple questions concerned were answered Time with Patient: Less than 30
--- NOTE | 2022-09-04 12:36 | P.PN ---
Subjective Progress Note Date: 09/04/22 Patient is seen at bedside and is accompanied by her daughter. Her daughter agrees that patient has old history of stroke with residual left upper extremity weakness. She feels patient is at baseline and agree with getting MRI brain. Objective - Vital Signs Vital signs: Vital Signs Temp 98.0 F 09/04/22 08:00 Pulse 82 09/04/22 08:00 Resp 20 09/04/22 08:00 BP 122/73 09/04/22 08:00 Pulse Ox 95 09/04/22 08:00 FiO2 Intake & Output 09/03/22 09/04/22 09/04/22 18:59 06:59 18:59 Intake Total 240 240 180 Output Total 300 700 Balance -60 -460 180 Weight 77.111 kg Intake: Oral 240 240 180 Output: Urine 300 700 Other: Voiding Method External Catheter External Catheter External Catheter - Exam GENERAL: The patient is walking with physical therapy and is not in acute distress. NEUROLOGICAL: Higher mental function: The patient is awake, alert, oriented to self, place. Did not respond to time. She is much more awake and responsive today compared to yesterday. Patient is following simple commands. No aphasia or neglect. Cranial nerves: The pupils are round, equal and reactive to light . Visual ye are full to confrontation throughout. Extraocular movement is intact no nystagmus is noted. Facial sensation is normal to touch throughout. The facial strength is normal throughout. Hearing is moderately decreased bilaterally to hand rub. Tongue is midline and moved [id number] without any difficulty. No dysarthria is noted. Shoulder shrug is normal bilaterally. Motor: Gait is walking with walker on her own without any assistance. The strength is left upper is 4+ (stated old). Right upper is 5 and lowers are 5-. Normal tone and bulk. Cerebellum: Normal finger to nose bilaterally. Sensation: Sensation is normal to touch throughout. Reflexes (right/left): 1+ throughout Plantars are mute bilaterally. Some of the workup during this hospital visit consisted of: Urine culture is positive for gram positive bacilli. AST and ALT AST of 58 while ALT 38. CK level is 447. Creatinine is 1.85 and the BUN/creatinine is the 103 is trending down somewhat. Urinalysis seems to be suggestive of possible urinary tract infection. CT of the head is reported as no acute intracranial process. Nonspecific white matter changes, likely secondary due to chronic small vessel ischemic disease. I personally reviewed the CT the head CT cervical spine is reported as no evidence of cervical spine fracture. Mild multilevel degenerative disc disease. Pulmonary vascular congestion correlate for congestive heart failure. EKG is reported as sinus rhythm. Right bundle branch block. Left anterior fascicular block. Abnormal EKG. MRI Brain: It is reported as no acute ischemia identified. Extensive degenerative and she was widespread abnormal signal throughout the white matter in a nonspecific pattern but most typical for more ischemia. Slightly greater central dilation of the ventricular system relative to the sulci can be associated with a component of normal pressure hydrocephalus with transependymal edema which could also be in the differential. I did not appreciated dilation of ventricles more than atrophy and I do not feel patient has normal pressure h ydrocephalus radiographically. Routine EEG: As abnormal. The background slowing suggestive of mild encephalopathy due to toxic metabolic derangement. Otherwise no focal slowing, epileptiform discharges or seizure on the EEG - Labs CBC & Chem 7: 09/03/22 06:45 09/04/22 07:51 Labs: Abnormal Lab Results - Last 24 Hours (Table) 09/04/22 Range/Units 07:51 Chloride 111 H (98-107) mmol/L BUN 39 H (7-17) mg/dL Creatinine 1.11 H (0.52-1.04) mg/dL Calcium 8.0 L (8.4-10.2) mg/dL Microbiology - Last 24 Hours (Table) 09/01/22 21:27 Urine Culture - Final Urine,Voided Escherichia coli 09/01/22 23:25 Blood Culture Gram Stain - Preliminary Blood Blood Culture - Preliminary Escherichia coli 09/01/22 23:25 Blood Culture - Final Blood Assessment and Plan Assessment: Altered mental status and appears due to metabolic encephalopathy and underlying UTI (hypernatremia, increase BUN/Cr and slight elevated AST/ALT due to dehydration) No acute or subacute ischemic stroke on MRI brain. Fall of unknown cause possibly due to above. Dysphagia likely due to above. Has old stroke (left upper extremity residual weakness according to patient) Acute UTI Acute kidney insufficiency and seems due to dehydration Dementia Atrial fibrillation on Xarelto History of stroke/TIA Plan: Resumed her Xarelto and statin 20mg qhs and is sufficient for secondary stroke prophylaxis. Continue neuro checks PT and OT are consulted Patient is on fall precautions We'll defer the rest of the medical management to primary team Recommend following-up with neurologist as outpatient within 2-3 weeks. The plan is discussed with patient's daughter (who is at bedside) and primary team. There is no further neurological work-up. Will sign off. Please reconsult if needed. Time with Patient: Less than 30
--- NOTE | 2022-09-04 14:12 | P.DS ---
Providers Date of admission: 09/01/22 21:47 Attending physician: Jacob Porter Consults: 09/01/22 21:47 Consult Physician Routine Consulting Provider: Lui Manuel Consult Reason/Comments: mental status changes Do you want consulting provider notified?: Yes 09/03/22 11:54 Consult Physician Routine Consulting Provider: Emily Tinoco Consult Reason/Comments: Gram negative bacteremia Do you want consulting provider notified?: Yes Primary care physician: Jose Armando Molina Hospital Course: Final Diagnosis -Altered mental status secondary to acute metabolic encephalopathy from underlying infection with UTI and sepsis. Stroke has been ruled out. -Acute urinary tract infection with sepsis present on admission with E. coli which is pansensitive. -Dysphagia likely from encephalopathy, diet has been upgraded today mentation improving -Hypovolemic hypernatremia: Secondary to intravascular depletion dehydration secondary to poor by mouth intake patient will be started on D5 water and sodium has improved to 145 -non-anion gap metabolic acidosis secondary to hyperchloremia IV fluids with D5 water as mentioned above, improving chloride currently 115. -Possible dementia although it appears to be mild to moderate -generalized weakness secondary to age-related muscle atrophy physical. PT and OT evaluation. -Mild acute renal failure secondary to dehydration improving -Atrial fibrillation on anti-coagulation which will be continued -History of CVA in the past with residual left upper weakness Full Code Discharge Disposition Stable for discharge to subacute rehab today. Cleared by neurology, cleared by infectious disease. She will complete a course of oral cipro 500 mg twice a day for 10 days. Continue all same home medications. Repeat CBC and BMP in 2 to 3 days. Recommend to see primary care, neurology and infectious disease on follow up. Continue on regular diet with aspiration precautions and no straws. Hospital Course This is a 77-year-old pleasant female has history of dementia although alert oriented 3 was brought to the emergency department because of fall and patient has not be feeling well. Patient denied any diarrhea nausea vomiting. Presents with no fever/chills. Patient was hyponatremic patient appeared to be dehydrated. Patient had highly elevated sodium of 152 received IV fluids with normal saline which had worsened the sodium level. Fluids were changed to D5 and water and the sodium has normalized. Chest x-ray was initially read as congestive heart failure, although currently there is no evidence for congestive heart failure She had BNP of around 335. Has significant generalized weakness without any focal weakness. She does appear to be encephalopathic and there is concern for possible acute UTI and urine culture was taken which show E. coli. Patient also had E.Coli bacteremia which is pansensitive. Infectious disease treated with IV ceftriaxone in patient and will discharge on 10 days of oral cipro. She had mild leukocytosis of 13 on admission chest now normalized. Neurology evaluated the patient secondary to altered mental status, CT of the head did not show any significant abnormality CT cervical spine did not show any significant abnormality. EEG was negative for any seizure activity. MRI follow-up was negative for any acute ischemia or stroke. Mentation had improved and she is cleared for discharge. 09/04/2022 Patient monitored on medical floor. She is currently alert 3, she has a residual left upper extremity weakness from a prior stroke. Mentation has improved today and was reevaluated by speech therapy at the bedside and diet has been upgraded to thin liquids with no straws. Continue with aspiration precautions. She currently denies chest pain, no shortness of breath. No nausea, vomiting or diarrhea. No headache, dizziness or lightheadedness. Her lungs are clear, S1-S2 auscultated, abdomen is soft and nontender. Neurological exam reveals left upper extremity weakness, no facial droop or aphasia. Labs reviewed sodium has improved to 141, BUN 39, creatinine 1.11, potassium 3.5. White count 9.9. Remains afebrile, heart rate 90, blood pressure 101/62, 96% on room air. Cleared for discharge to subacute rehab with above mentioned recommendations. Total time taken in discharge planning greater than 35 minutes. Please see medication reconciliation for a list of current medication. Thank you for allowing us to participate in the care of this patient. The impression and plan of care has been dictated by Nereyda Peña Nurse Practitioner as directed. Dr. Charlotte MD I have performed a history and physical examination and medical decision making of this patient, discussed the same with the dictator, and agree with the dictators assessment and plan as written, documented as a scribe. Based on total visit time, I have performed more than 50% of this visit. Patient Condition at Discharge: Stable Plan - Discharge Summary Discharge Rx Participant: No New Discharge Prescriptions: New Pantoprazole [Protonix] 40 mg PO -BRKT #0 tab Ciprofloxacin HCl [Cipro] 500 mg PO BID 10 Days #20 tab Acetaminophen [Tylenol] 650 mg PO Q6H #30 capsule Continue Cyanocobalamin (Vitamin B-12) [Vitamin B-12] 1,000 mcg PO DAILY Atorvastatin [Lipitor] 20 mg PO HS Oxybutynin Chloride [Ditropan XL] 10 mg PO Q2D@2100 Alendronate Sodium [Fosamax] 35 mg PO WHITE@0900 Hai/D3/Mag11/Zinc/Security Screener/Adonis/Bor [Caltrate 600+D Plus Tablet] 1 tab PO DAILY Lactose-Reduced Food [Boost] 237 ml PO DAILY Rivaroxaban [Xarelto] 20 mg PO HS Donepezil [Aricept] 10 mg PO DAILY Discharge Medication List Atorvastatin [Lipitor] 20 mg PO HS 02/09/17 [History] Cyanocobalamin (Vitamin B-12) [Vitamin B-12] 1,000 mcg PO DAILY 02/09/17 [History] Alendronate Sodium [Fosamax] 35 mg PO WHITE@0900 07/15/21 [History] Oxybutynin Chloride [Ditropan XL] 10 mg PO Q2D@2100 07/15/21 [History] Rivaroxaban [Xarelto] 20 mg PO HS 07/15/21 [History] Hai/D3/Mag11/Zinc/Security Screener/Adonis/Bor [Caltrate 600+D Plus Tablet] 1 tab PO DAILY 09/01/22 [History] Donepezil [Aricept] 10 mg PO DAILY 09/01/22 [History] Lactose-Reduced Food [Boost] 237 ml PO DAILY 09/01/22 [History] Acetaminophen [Tylenol] 650 mg PO Q6H #30 capsule 09/04/22 [Rx] Ciprofloxacin HCl [Cipro] 500 mg PO BID 10 Days #20 tab 09/04/22 [Rx] Pantoprazole [Protonix] 40 mg PO AC-[id number] #0 tab 09/04/22 [Rx] Follow up Appointment(s)/Referral(s): Zofia Mcdonnell MD [REFERRING] - 1 Week Jose Armando Molina MD [Primary Care Provider] - 1 Week Emily Tinoco MD [STAFF PHYSICIAN] - 1 Week Activity/Diet/Wound Care/Special Instructions: Cleared for discharge to subacute rehab Continue on same home medications Discharge on oral cipro 500 mg twice a day for 10 days Follow up with primary care , neurology and infectious disease on discharge Regular diet with aspiration precautions and no straws Discharge Disposition: TRANSFER TO SNF/ECF
[2022-09-07] MEDS ORDERED: NON FORMULARY DRUG (Alendronate Sodium [Fosamax] 35 MG Tablet) PO SCH (09:00)
== END 2022-09-04 16:00 | DRG 871 ==
LOC: EC 18:21 → EEVIPCON 18:21 → 3SCARD 21:47
PROVIDERS: ADMIT Internal Medicine; ATTEND Internal Medicine
DX: A41.51 Sepsis due to Escherichia coli [E. coli] (principal); G93.41 Metabolic encephalopathy; E87.20 Acidosis, unspecified; N17.9 Acute kidney failure, unspecified; E87.0 Hyperosmolality and hypernatremia; E87.1 Hypo-osmolality and hyponatremia; I69.354 Hemiplegia and hemiparesis following cerebral infarction affecting left non-dominant side; N39.0 Urinary tract infection, site not specified; I45.2 Bifascicular block; Z16.29 Resistance to other single specified antibiotic; F01.50 Vascular dementia, unspecified severity, without behavioral disturbance, psychotic disturbance, mood disturbance, and anxiety; S09.90XA Unspecified injury of head, initial encounter; E87.8 Other disorders of electrolyte and fluid balance, not elsewhere classified; I48.91 Unspecified atrial fibrillation; E86.0 Dehydration; B96.20 Unspecified Escherichia coli [E. coli] as the cause of diseases classified elsewhere; R13.10 Dysphagia, unspecified; E78.5 Hyperlipidemia, unspecified; N39.41 Urge incontinence; M50.30 Other cervical disc degeneration, unspecified cervical region; I25.10 Atherosclerotic heart disease of native coronary artery without angina pectoris; I35.1 Nonrheumatic aortic (valve) insufficiency; R33.9 Retention of urine, unspecified; F03.B0 Unspecified dementia, moderate, without behavioral disturbance, psychotic disturbance, mood disturbance, and anxiety; R74.8 Abnormal levels of other serum enzymes; E86.1 Hypovolemia; M62.50 Muscle wasting and atrophy, not elsewhere classified, unspecified site; W19.XXXA Unspecified fall, initial encounter; Z20.822 Contact with and (suspected) exposure to COVID-19; Y92.129 Unspecified place in nursing home as the place of occurrence of the external cause; Z87.440 Personal history of urinary (tract) infections; Z79.899 Other long term (current) drug therapy; Z87.891 Personal history of nicotine dependence; Z79.83 Long term (current) use of bisphosphonates; Z79.01 Long term (current) use of anticoagulants; Z91.048 Other nonmedicinal substance allergy status; Z91.041 Radiographic dye allergy status; Z91.81 History of falling
CPT/HCPCS: 36415; 70450; 70551; 71045; 72125; 72170; 76700; 80048; 80053; 81001; 82550; 83735; 83880; 84100; 84145; 84484; 85025; 85027; 85610; 85730; 87040; 87077; 87086; 87186; 87635; 93005; 95819; 96360; 96365; 96375; 99285

== ENCOUNTER 2023-07-31 09:52 | Day surgery (SDC) | payer MEDICARE ==
[2023-07-29 09:19] VITALS: BMI 28.3
[2023-07-31] MEDS ORDERED: SODIUM CHLORIDE 0.9% 500 ML 500 ML IV ONE (10:02)
[2023-07-31 10:28] VITALS: RESP 16; TEMP 98
[2023-07-31] MEDS ORDERED: fentaNYL (PF) 50 MCG/ML 2 ML AMP ONE (11:45)
[2023-07-31] MEDS: BENZOCAINE SPRAY 1 CAN TOPICAL ONE ×2 (11:51→12:35)
[2023-07-31] MEDS: fentaNYL (PF) 50 MCG/ML 2 ML AMP IVP ONE ×2 (12:35→12:37)
[2023-07-31] MEDS ORDERED: MIDAZOLAM 2 MG/2 ML VIAL IVP ONE ×2 (12:35→12:36)
--- NOTE | 2023-07-31 13:30 | P.TEE ---
Description of Procedure(s): Procedure performed: Transesophageal Echocardiogram with color flow doppler, pulsed wave doppler and continuous wave doppler, moderate conscious sedation Moderate conscious sedation: Moderate conscious sedation was supplied with direct supervision of myself using Versed and Fentanyl. Complications: none Indications: Aortic regurgitation PROCEDURE: After the risks, benefits and alternatives of the above mentioned procedure was explained in detail with the patient, informed consent was obtained. Patient was brought to the lab in a fasting state. Patient was given IV Versed and Fentanyl for sedation. The throat was sprayed with Hurricane to anesthetize the throat. A lubricated Omni probe was then introduced into the esophagus and stomach and multiple views were obtained. 2D echo with color flow doppler, pulsed wave doppler and continuous wave doppler was utilized. Agitated saline bubbles were injected to assess for any intra-atrial shunt. The probe was then removed. Patient tolerated the procedure well. Patient was transferred to the post procedure area in stable and satisfactory condition. FINDINGS: 1. The aortic valve is tricuspid with mild to moderate aortic regurgitation. There is no descending aortic flow reversal. 2. The mitral valve appears be normal with mild to moderate mitral regurgitation. 3. Tricuspid valve with mild tricuspid regurgitation. 4. The interatrial septum is intact. No evidence of PFO. 5. Left atrial appendage is free of clot. 6. Left ventricular ejection fraction 55%. There is some mild asymmetric septal hypertrophy
[2023-07-31 14:54] VITALS: BP 129/63; PULSE 80
== END 2023-07-31 14:12 | disposition home or self-care (01) ==
LOC: CATHCVL 09:52
PROVIDERS: ATTEND Internal Medicine
DX: I08.3 Combined rheumatic disorders of mitral, aortic and tricuspid valves (principal); E78.5 Hyperlipidemia, unspecified; I25.10 Atherosclerotic heart disease of native coronary artery without angina pectoris; Z86.718 Personal history of other venous thrombosis and embolism; Z86.711 Personal history of pulmonary embolism; Z79.899 Other long term (current) drug therapy; Z86.73 Personal history of transient ischemic attack (TIA), and cerebral infarction without residual deficits; Z88.8 Allergy status to other drugs, medicaments and biological substances; Z79.01 Long term (current) use of anticoagulants
CPT/HCPCS: 93312; 93320; 93325; 99152; J2250; J3010

== ENCOUNTER → 2024-03-08 | Outpatient (CLI) | payer MEDICARE ==
--- NOTE | 2024-03-09 09:12 | BD ---
EXAMINATION TYPE: Axial Bone Density DATE OF EXAM: 03/08/2024 CLINICAL HISTORY: 78 years old Female. ICD-10 CODE: M81.0 OSTEOPOROSIS Height: 62 in Weight: 165 lbs FRAX RISK QUESTIONS: Secondary Osteoporosis: 3. Menopause before 43: total hysterectomy age 36 pt takes alendronate sodium for 7 years EXAM MEASUREMENTS: Bone mineral densitometry was performed using the Nokter System. Bone mineral density as measured about the Lumbar spine is: ----- L1-L4(G/cm2): 1.279 T Score Values are as follows: ----- L1: 0.4 ----- L2: 0.8 ----- L3: 2.0 ----- L4: 0.0 ----- L1-L4: 0.8 Z Score Values are as follows: ----- L1: 1.9 ----- L2: 2.3 ----- L3: 3.5 ----- L4: 1.5 ----- L1-L4: 2.3 Bone mineral density has: Decreased -5.0% since study of: 04/10/2021 Bone mineral density about the R hip (g/cm2): 0.812 Bone mineral density about the L hip (g/cm2): 0.716 T Score values are as follows: -----R Neck: -1.7 -----L Neck: -2.3 -----R Total: -1.6 -----L Total: -2.3 Z Score values are as follows: -----R Neck: 0.3 -----L Neck: -0.3 -----R Total: 0.3 -----L Total: -0.5 Bone mineral density has: Decreased -1.0% since study of: 04/10/2021 FRAX%s: The graph provided illustrates a 17.0% chance for a major osteoporotic fx and a 5.5% chance f or the hips probability for fx in 10 years time. IMPRESSION: Osteopenia (T Score between -2.5 and -1). There is slightly increased risk of fracture and the patient may be considered for treatment. Re-Screen 2-5 years. NOTE: T-SCORE=SD OF THE YOUNG ADULT MEAN.
== END | disposition home or self-care (01) ==
LOC: RADBDWWP 15:44
PROVIDERS: ATTEND Family Medicine
DX: M85.89 Other specified disorders of bone density and structure, multiple sites (principal); M81.0 Age-related osteoporosis without current pathological fracture; S05.12XA Contusion of eyeball and orbital tissues, left eye, initial encounter; R53.1 Weakness; S93.402A Sprain of unspecified ligament of left ankle, initial encounter; W19.XXXA Unspecified fall, initial encounter
CPT/HCPCS: 77080

== ENCOUNTER 2024-11-14 08:56 | Emergency (ER) | payer MEDICARE ==
--- NOTE | 2024-11-14 10:00 | XR ---
EXAMINATION TYPE: XR Hip LT and AP Pelvis DATE OF EXAM: 11/14/2024 9:53 AM INDICATION: Patient age:Female; 79 years old; Reason for study: pain; PHH. pain COMPARISON: Pelvic radiograph 09/01/2022 TECHNIQUE: Both hips examined in the frontal and lateral projections . FINDINGS: No evidence of any acute osseous pathology, joint dislocation, or soft tissue swelling. Med ial joint space narrowing of both hips with acetabular sclerosis. Pelvic phleboliths. IMPRESSION: 1. No acute osseous pathology. 2. Mild osteoarthritic changes of both hips. 3. [facility], , 11/14/2024 9:58 AM
[2024-11-14 10:06] LABS: Basophils % (A) 0 %; Eosinophils # (A) 0.1 k/uL (0-0.7); Eosinophils % (A) 1 %; HCT 42.8 % (34.0-46.0); HGB 14.3 gm/dL (11.4-16.0); Lymphocytes # (A) 0.7 k/uL (1.0-4.8); Lymphocytes % (A) 7 %; MCH 29.4 pg (25.0-35.0); MCHC 33.4 g/dL (31.0-37.0); MCV 87.9 fL (80.0-100.0); Mean Platelet Volume 7.2; Monocytes # (A) 0.5 k/uL (0-1.0); Monocytes % (A) 5 %; Neutrophils # (A) 8.5 k/uL (1.3-7.7); Neutrophils % (A) 86 %; Platelet Count 244 k/uL (150-450); RBC 4.87 m/uL (3.80-5.40); RDW 13.8 % (11.5-15.5); WBC 9.9 k/uL (3.8-10.6)
--- NOTE | 2024-11-14 10:13 | ED ---
Extremity Problem HPI - General Chief complaint: Extremity Problem,Nontraumatic Stated complaint: left hip and side pain Time Seen by Provider: 11/14/24 09:10 Source: patient, RN notes reviewed Mode of arrival: wheelchair Limitations: no limitations - History of Present Illness Initial comments: 79-year-old female presents emergency department complaint of right hip pain. Patient states that she has syncopal episode on Thursday this is not unusual for her. Patient states that usually happens associated with showers. States she was given shower when she fell onto her right hip. She denies any head injury no neck pain back pain. She states that she has been soreness of her hip and now she is unable to walk on because of the pain. Patient denies any abdominal pain denies chest pain or palpitations. - Related Data Home Medications Medication Instructions Recorded Confirmed Cyanocobalamin (Vitamin B-12) 1,000 mcg PO QAM 02/09/17 07/29/23 [Vitamin B-12] Alendronate Sodium [Fosamax] 35 mg PO WHITE 07/15/21 07/31/23 Rivaroxaban [Xarelto] 20 mg PO HS 07/15/21 07/29/23 Hai/D3/Mag11/Zinc/Human Relations Teacher/Adonis/Bor 1 tab PO QAM 09/01/22 07/29/23 [Caltrate 600+D Plus Tablet] Donepezil [Aricept] 10 mg PO QAM 09/01/22 07/29/23 Atorvastatin [Lipitor] 40 mg PO HS 07/29/23 07/29/23 Furosemide [Lasix] 20 mg PO TUTHSA 07/29/23 07/29/23 L.acidoph,Paracasei, B.lactis 1 each PO QAM 07/29/23 07/29/23 [Probiotic] Memantine HCl 5 mg PO BID 07/29/23 07/29/23 Methenamine Hippurate [Hiprex] 1 gm PO Q12H 07/29/23 07/29/23 Mirabegron [Myrbetriq] 50 mg PO HS 07/29/23 07/29/23 lisinopriL [Zestril] 5 mg PO HS 07/29/23 07/29/23 Allergies Allergy/AdvReac Type Severity Reaction Status Date / Time cat dander Allergy Unknown Verified 11/14/24 09:16 dog dander Allergy Unknown Verified 11/14/24 09:16 Iodinated Contrast Media Allergy Unknown Verified 11/14/24 09:16 [Iodinated Contrast- Oral and IV Dye] mold Allergy Unknown Verified 11/14/24 09:16 Review of Systems ROS Statement: Those systems with pertinent positive or pertinent negative responses have been documented in the HPI. ROS Other: All systems not noted in ROS Statement are negative. 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 History of Any Multi-Drug Resistant Organisms: None Reported Past Surgical History: Cholecystectomy, Heart Catheterization, Hysterectomy Additional Past Surgical History / Comment(s): Bilateral cataract surgery, bilateral eyelid surgery, varicose vein stripping bilateral legs. Past Anesthesia/Blood Transfusion Reactions: No Reported Reaction Additional Past Anesthesia/Blood Transfusion Reaction / Comment(s): No blood transfusion to date. With last procedure Jul 2020, woke up delirious, "her dementia really kicked in". Past Psychological History: Depression Smoking Status: Never smoker Past Alcohol Use History: Rare Past Drug Use History: None Reported - Past Family History Mother Family Medical History: No Reported History Father Family Medical History: No Reported History General Exam Limitations: no limitations General appearance: alert, in no apparent distress Head exam: Present: atraumatic, normocephalic, normal inspection Eye exam: Present: normal appearance, PERRL, EOMI. Absent: scleral icterus, conjunctival injection, periorbital swelling ENT exam: Present: normal exam, normal oropharynx, mucous membranes moist Neck exam: Present: normal inspection. Absent: tenderness, meningismus, lymphadenopathy Respiratory exam: Present: normal lung sounds bilaterally. Absent: respiratory distress, wheezes, rales, rhonchi, stridor Cardiovascular Exam: Present: regular rate, normal rhythm, normal heart sounds. Absent: systolic murmur, diastolic murmur, rubs, gallop, clicks Extremities exam: Present: tenderness (Right hip). Absent: normal inspection, full ROM Back exam: Present: full ROM. Absent: tenderness Course Vital Signs 11/14/24 11/14/24 09:12 12:23 Temperature 98.7 F 98.1 F Pulse Rate 84 81 Respiratory 20 18 Rate Blood Pressure 140/86 145/79 O2 Sat by Pulse 99 98 Oximetry Medical Decision Making - Medical Decision Making Was pt. sent in by a medical professional or institution (, PA, PREBOARDER, urgent care, hospital, or [facility]...) When possible be specific @ -No Did you speak to anyone other than the patient for history (EMS, parent, family, police, friend...)? What history was obtained from this source @ -No Did you review nursing and triage notes (agree or disagree)? Why? @ -I reviewed and agree with nursing and triage notes Were old charts reviewed (outside hosp., previous admission, EMS record, old EKG, old radiological studies, urgent care reports/EKG's, [facility] records)? Report findings @ -No old charts were reviewed Differential Diagnosis (chest pain, altered mental status, abdominal pain women, abdominal pain men, vaginal bleeding, weakness, fever, dyspnea, syncope, headache, dizziness, GI bleed, back pain, seizure, CVA, palpatations, mental health, musculoskeletal)? @ -Fall, hip pain, hip contusion, hip fracture differential Syncope: Valvular disease, hypertrophic cardiomyopathy, pulmonary embolism, tamponade, tachycardia, bradycardia, AL, hypovolemia, hemorrhage, dissection, anemia, intracranial hemorrhage, seizure, hypoglycemia, carbon monoxide poisoning, this is not meant to be an all-inclusive list. EKG interpreted by me (3pts min.). @ -As above X-rays interpreted by me (1pt min.). @ -X-ray left hip, pelvis no acute fracture CT interpreted by me (1pt min.). @ -CT of the left hip showing no acute process no acute fracture U/S interpreted by me (1pt. min.). @ -None done What testing was considered but not performed or refused? (CT, X-rays, U/S, labs)? Why? @ -None What meds were considered but not given or refused? Why? @ -None Did you discuss the management of the patient with other professionals (professionals i.e. , YNES, PREBOARDER, lab, RT, psych nurse, public health social worker, devops architect, teacher, chief digital media officer, ed case manager)? Give summary @ -No Was smoking cessation discussed for >3mins.? @ -No Was critical care preformed (if so, how long)? @ -No Were there social determinants of health that impacted care today? How? (Homelessness, low income, unemployed, alcoholism, drug addiction, transportation, low edu. Level, literacy, decrease access to med. care, group home, rehab)? @ -No Was there de-escalation of care discussed even if they declined (Discuss DNR or withdrawal of care, Hospice)? DNR status @ -No What co-morbidities impacted this encounter? (DM, HTN, Smoking, COPD, CAD, Cancer, CVA, ARF, Chemo, Hep., AIDS, mental health diagnosis, sleep apnea, morbid obesity)? @ -None Was patient admitted / discharged? Hospital course, mention meds given and route, prescriptions, significant lab abnormalities, going to OR and other pertinent info. @ -disCharge patient presented for fall, left hip pain. Patient states she is able to ambulate with her walker she does not like to use it and presented for this pain the left hip. Imaging is negative. Patient did have a syncopal episode that happened on Thursday but this is a recurrent issue and states is not worrisome to her patient is here with family agrees with plan to discharge and follow-up. Undiagnosed new problem with uncertain prognosis? @ -No Drug Therapy requiring intensive monitoring for toxicity (Heparin, Nitro, Insulin, Cardizem)? @ -No Were any procedures done? @ -No Diagnosis/symptom? @ -Fall, left hip pain Acute, or Chronic, or Acute on Chronic? @ -Acute Uncomplicated (without systemic symptoms) or Complicated (systemic symptoms)? @ -Uncomplicated Side effects of treatment? @ -No Exacerbation, Progression, or Severe Exacerbation? @ -No Poses a threat to life or bodily function? How? (Chest pain, USA, AL, pneumonia, PE, COPD, DKA, ARF, appy, cholecystitis, CVA, Diverticulitis, Homicidal, Suicidal, threat to staff... and all critical care pts) @ -No - Lab Data Result diagrams: 11/14/24 09:24 11/14/24 09:24 Lab Results 11/14/24 11/14/24 Range/Units 09:24 09:24 WBC 9.9 (3.8-10.6) k/uL RBC 4.87 (3.80-5.40) m/uL Hgb 14.3 (11.4-16.0) gm/dL Hct 42.8 (34.0-46.0) % MCV 87.9 (80.0-100.0) fL MCH 29.4 (25.0-35.0) pg MCHC 33.4 (31.0-37.0) g/dL RDW 13.8 (11.5-15.5) % Plt Count 244 (150-450) k/uL MPV 7.2 Neutrophils % 86 % Lymphocytes % 7 % Monocytes % 5 % Eosinophils % 1 % Basophils % 0 % Neutrophils # 8.5 H (1.3-7.7) k/uL Lymphocytes # 0.7 L (1.0-4.8) k/uL Monocytes # 0.5 (0-1.0) k/uL Eosinophils # 0.1 (0-0.7) k/uL Basophils # 0.0 (0-0.2) k/uL Sodium 136 L (137-145) mmol/L Potassium 4.4 (3.5-5.1) mmol/L Chloride 101 (98-107) mmol/L Carbon Dioxide 23 (22-30) mmol/L Anion Gap 12 mmol/L BUN 12 (7-17) mg/dL Creatinine 0.79 (0.52-1.04) mg/dL Est GFR (CKD-EPI)AfAm 82 (>60 ml/min/1.73 sqM) Est GFR (CKD-EPI)NonAf 71 (>60 ml/min/1.73 sqM) Glucose 103 H (74-99) mg/dL Calcium 9.2 (8.4-10.2) mg/dL Total Bilirubin 1.2 (0.2-1.3) mg/dL AST 25 (14-36) U/L ALT 19 (4-34) U/L Alkaline Phosphatase 78 (38-126) U/L Total Protein 6.7 (6.3-8.2) g/dL Albumin 4.0 (3.5-5.0) g/dL - EKG Data -: EKG Interpreted by [facility] E[facility] Comments: EKG performed at 9: 29 A-fib with a rate of 85 QRS 129 QT/QTc 365/407 Disposition Clinical Impression: Fall, Contusion of hip, left Disposition: HOME SELF-CARE Condition: Stable Instructions (If sedation given, give patient instructions): Hip Contusion (ED) Additional Instructions: Please return to the Emergency Dept for any concerns Is patient prescribed a controlled substance at d/c from ED?: No Referrals: Duane Odom MD [Primary Care Provider] - 1-2 days Time of Disposition: 12:18
[2024-11-14 10:30] LABS: ALT 19 U/L (4-34); AST 25 U/L (14-36); African American GFR (CKD) 82 (>60 ml/min/1.73 sqM); Alkaline Phosphatase 78 U/L (38-126); Anion Gap 12 mmol/L; Blood Urea Nitrogen 12 mg/dL (7-17); Calcium 9.2 mg/dL (8.4-10.2); Carbon Dioxide 23 mmol/L (22-30); Chloride 101 mmol/L (98-107); Glucose 103 mg/dL (74-99); Non-African American GFR(CKD) 71 (>60 ml/min/1.73 sqM); Potassium 4.4 mmol/L (3.5-5.1); Sodium 136 mmol/L (137-145); Total Bilirubin 1.2 mg/dL (0.2-1.3); Total Protein 6.7 g/dL (6.3-8.2)
--- NOTE | 2024-11-14 11:25 | CT ---
EXAMINATION TYPE: CT hip LT wo con CT DLP: 577.3 mGycm, Automated exposure control for dose reduction was used. DATE OF EXAM: 11/14/2024 11:11 AM COMPARISON: Left hip and pelvic radiograph of the same date. CLINICAL INDICATION:Female, 79 years old with history of pain; PHH, left hip pain after fall TECHNIQUE: Axial images were obtained of the left hip without the use of IV contrast. Additional cor onal and sagittal reformatted images and soft tissue and bone window were obtained for review. FINDINGS: Diffuse bone demineralization. There is no evidence of fracture, subluxation, or dislocatio n. No significant soft tissue swelling or joint effusion is identified. No focal muscular atrophy or edema is identified. No radiopaque foreign body identified. Below degenerative changes and facet art hropathy visualized lower lumbar spine. The left SI joint is intact. Atherosclerotic calcifications are visualized to vasculature. Uterus is surgically absent. Sigmoid di verticulosis without evidence for acute diverticulitis. Small fat filled umbilical hernia. IMPRESSION: 1. No acute osseous abnormality. 2. Sigmoid diverticulosis without evidence for acute diverticulitis. [facility], , 11/14/2024 11:23 AM
[2024-11-14 12:25] VITALS: BP 145/79; PULSE 81; RESP 18; TEMP 98.1
== END 2024-11-14 12:25 | disposition home or self-care (01) ==
LOC: EC 08:56
DX: S70.02XA Contusion of left hip, initial encounter (principal); Z86.73 Personal history of transient ischemic attack (TIA), and cerebral infarction without residual deficits; Z91.041 Radiographic dye allergy status; Z88.8 Allergy status to other drugs, medicaments and biological substances; W18.30XA Fall on same level, unspecified, initial encounter
CPT/HCPCS: 36415; 73502; 80053; 85025; 93005; 99284